=== PATIENT | female | born 1960 | race Two or more races ===

== ENCOUNTER → 2017-07-12 | Outpatient (CLI) | payer OTHER | END | disposition home or self-care (01) | LOC: LAB 09:38 | PROVIDERS: ATTEND Family Medicine | DX: Z12.12 Encounter for screening for malignant neoplasm of rectum (principal) | CPT/HCPCS: 82270 ==

== ENCOUNTER → 2017-08-31 | Outpatient (CLI) | payer OTHER ==
[~2017-08-31] MED LIST: ASPI81TA27 PO; ATOR20TA50 PO; BENA10TA9 PO; METF-370 PO; TRAM50TA2 PO
[2017-08-31 07:32] LABS: Basophils # (auto) 0.1 uL; Eosinophils # (auto) 0.1 uL; Eosinophils % (auto) 1.1 % (0.0-7.0); Mean Corpuscular Volume 93.3 fL (80.0-100.0); Neutrophils # (auto) 6.4 uL; Nucleated Red Blood Cells % 0.1 %
[2017-08-31 07:34] LABS: Hematocrit 47.5 % (36.0-46.0); Hemoglobin 15.7 g/dL (12.2-16.2); Lymphocytes % (auto) 21.8 % (10.0-50.0); Mean Corpuscular Hemoglobin 30.9 pg (28.0-32.0); Mean Corpuscular Hgb Conc. 33.1 g/dL (32.0-36.0); Monocytes # (auto) 0.8 uL; Neutrophils % (auto) 68.1 % (37.0-80.0); Platelet Count (auto) 485 10^3/uL (140-450); Red Blood Cells 5.09 10^6/uL (4.0-5.20); Red Cell Distribution Width 14.3 % (11.8-14.3); White Blood Cell 9.4 10^3/uL (4.4-10.8)
[2017-08-31 08:03] LABS: Albumin 3.9 g/dL (3.4-5.0); BUN/Creatinine Ratio 20.6; Bilirubin, Total 0.5 mg/dL (0.2-1.0); Calcium 9.2 mg/dL (8.5-10.1); Potassium 3.9 mmol/L (3.5-5.1); Total Protein 8.7 g/dL (6.4-8.2)
[2017-09-01 15:59] LABS: Urine Bacteria FEW /hpf (None Seen); Urine Blood TRACE /uL (Negative); Urine Specific Gravity 1.015 (1.001-1.035); Urine WBC 88 /hpf (0 - 5); Urine WBC Clumps PRESENT /hpf (None Seen)
== END | disposition home or self-care (01) ==
LOC: LAB 06:58
PROVIDERS: ATTEND Family Medicine
DX: I10 Essential (primary) hypertension (principal); E11.9 Type 2 diabetes mellitus without complications; E66.01 Morbid (severe) obesity due to excess calories; E78.5 Hyperlipidemia, unspecified; E55.9 Vitamin D deficiency, unspecified
CPT/HCPCS: 36415; 80053; 80061; 81001; 82306; 82607; 83036; 84443; 85025

== ENCOUNTER 2017-09-04 03:03 | Emergency (ER) | payer OTHER ==
[~2017-09-04] VITALS: Ht 167.6 cm; Wt 113.4 kg
[2017-09-04 03:43] VITALS: BP 132/77
[2017-09-04] MEDS ORDERED: KETOROLAC TROMETH 60MG/2ML VIAL IM ONE (04:00)
[2017-09-04] MEDS ORDERED: CYCLOBENZAPRINE HCL 10 MG TAB PO ONE (04:00)
[2017-12-04] MEDS ORDERED: TRAM50TA2 PO (11:46)
[2017-12-04] MEDS ORDERED: BENA10TA9 PO (11:46)
[2017-12-04] MEDS ORDERED: METF-370 PO (11:46)
[2017-12-04] MEDS ORDERED: ATOR20TA50 PO (11:46)
[2017-12-04] MEDS ORDERED: ASPI81TA27 PO (11:46)
== END 2017-09-04 04:37 | disposition home or self-care (01) ==
LOC: ER 03:04
DX: R10.84 Generalized abdominal pain (principal); L90.5 Scar conditions and fibrosis of skin
CPT/HCPCS: 96372; 99283; J1885

== ENCOUNTER 2017-09-22 08:22 | Emergency (ER) | payer OTHER ==
[~2017-09-22] VITALS: Ht 167.6 cm; Wt 108.9 kg
[2017-09-22 08:45] VITALS: BP 183/80
[2017-12-04] MEDS ORDERED: TRAM50TA2 PO (11:46)
[2017-12-04] MEDS ORDERED: ASPI81TA27 PO (11:46)
[2017-12-04] MEDS ORDERED: METF-370 PO (11:46)
[2017-12-04] MEDS ORDERED: ATOR20TA50 PO (11:46)
[2017-12-04] MEDS ORDERED: BENA10TA9 PO (11:46)
== END 2017-09-22 09:16 | disposition home or self-care (01) ==
LOC: ER 08:22
DX: R10.12 Left upper quadrant pain (principal); G89.29 Other chronic pain; L90.5 Scar conditions and fibrosis of skin
CPT/HCPCS: 93005

== ENCOUNTER 2017-10-16 08:19 | Emergency (ER) | payer OTHER ==
[~2017-10-16] VITALS: Ht 165.1 cm; Wt 108.9 kg
[2017-10-16 09:53] LABS: Urine Bacteria FEW /hpf (None Seen); Urine Blood Negative /uL (Negative); Urine WBC 24 /hpf (0 - 5)
[2017-10-16 11:00] VITALS: BP 148/80
[2017-12-04] MEDS ORDERED: ATOR20TA50 PO (11:46)
[2017-12-04] MEDS ORDERED: BENA10TA9 PO (11:46)
[2017-12-04] MEDS ORDERED: ASPI81TA27 PO (11:46)
[2017-12-04] MEDS ORDERED: TRAM50TA2 PO (11:46)
[2017-12-04] MEDS ORDERED: METF-370 PO (11:46)
== END 2017-10-16 12:43 | disposition home or self-care (01) ==
LOC: ER 08:19
DX: N39.0 Urinary tract infection, site not specified (principal); I10 Essential (primary) hypertension; E11.9 Type 2 diabetes mellitus without complications; R53.1 Weakness
CPT/HCPCS: 81001; 81025

== ENCOUNTER 2017-10-17 08:02 | Emergency (ER) | payer OTHER, MEDICAID ==
[~2017-10-17] VITALS: Ht 165.1 cm; Wt 108.9 kg
[2017-10-17 09:05] LABS: Basophils # (auto) 0.1 uL; Basophils % (auto) 1.4 % (0.0-2.0); Eosinophils # (auto) 0.1 uL; Eosinophils % (auto) 0.6 % (0.0-7.0); Hematocrit 45.8 % (36.0-46.0); Hemoglobin 15.1 g/dL (12.2-16.2); Lymphocytes # (auto) 2.3 uL; Lymphocytes % (auto) 23.4 % (10.0-50.0); Mean Corpuscular Hemoglobin 30.3 pg (28.0-32.0); Mean Corpuscular Hgb Conc. 32.9 g/dL (32.0-36.0); Monocytes # (auto) 0.7 uL; Monocytes % (auto) 7.2 % (0.0-12.0); Neutrophils # (auto) 6.8 uL; Neutrophils % (auto) 67.4 % (37.0-80.0); Nucleated Red Blood Cells % 0.1 %; Platelet Count (auto) 444 10^3/uL (140-450); Red Blood Cells 4.98 10^6/uL (4.0-5.20); Red Cell Distribution Width 14.5 % (11.8-14.3)
[2017-10-17 09:33] LABS: Albumin 3.8 g/dL (3.4-5.0); BUN/Creatinine Ratio 22.1; Bilirubin, Total 0.3 mg/dL (0.2-1.0); Calcium 9.3 mg/dL (8.5-10.1); Potassium 4.6 mmol/L (3.5-5.1); Total Protein 8.6 g/dL (6.4-8.2)
[2017-10-17 10:25] VITALS: BP 150/72
[2017-12-04] MEDS ORDERED: TRAM50TA2 PO (11:46)
[2017-12-04] MEDS ORDERED: ATOR20TA50 PO (11:46)
[2017-12-04] MEDS ORDERED: ASPI81TA27 PO (11:46)
[2017-12-04] MEDS ORDERED: BENA10TA9 PO (11:46)
[2017-12-04] MEDS ORDERED: METF-370 PO (11:46)
== END 2017-10-17 10:37 | disposition home or self-care (01) ==
LOC: ER 08:02
DX: R10.13 Epigastric pain (principal); E11.9 Type 2 diabetes mellitus without complications; I10 Essential (primary) hypertension
CPT/HCPCS: 36415; 80053; 82150; 83690; 85025

== ENCOUNTER → 2018-09-28 | Outpatient (CLI) | payer OTHER, MEDICAID ==
[2018-09-28 08:10] LABS: Basophils # (auto) 0.1 uL; Eosinophils # (auto) 0.1 uL; Eosinophils % (auto) 1.1 % (0.0-7.0); Hematocrit 45.4 % (36.0-46.0); Hemoglobin 15.2 g/dL (12.2-16.2); Lymphocytes # (auto) 1.9 uL; Mean Corpuscular Hemoglobin 30.5 pg (28.0-32.0); Mean Corpuscular Hgb Conc. 33.6 g/dL (32.0-36.0); Monocytes # (auto) 0.6 uL; Monocytes % (auto) 7.7 % (0.0-12.0); Neutrophils # (auto) 5.5 uL; Neutrophils % (auto) 67.2 % (37.0-80.0); Nucleated Red Blood Cells % 0.1 %; Platelet Count (auto) 379 10^3/uL (140-450); Red Blood Cells 4.99 10^6/uL (4.0-5.20); Red Cell Distribution Width 14.1 % (11.8-14.3); White Blood Cell 8.1 10^3/uL (4.4-10.8)
[2018-09-28 08:17] LABS: Urine Bacteria FEW /hpf (None Seen); Urine Blood Negative /uL (Negative); Urine Specific Gravity 1.026 (1.001-1.035); Urine WBC 6 /hpf (0 - 5)
[2018-09-28 08:31] LABS: Potassium 3.9 mmol/L (3.5-5.1)
[2018-09-28 08:39] LABS: Albumin 3.6 g/dL (3.4-5.0); BUN/Creatinine Ratio 21.3; Bilirubin, Total 0.3 mg/dL (0.2-1.0); Calcium 9.2 mg/dL (8.5-10.1); Total Protein 7.9 g/dL (6.4-8.2)
== END | disposition home or self-care (01) ==
LOC: LAB 07:33
PROVIDERS: ATTEND Family Medicine
DX: E55.9 Vitamin D deficiency, unspecified (principal); I10 Essential (primary) hypertension; E78.5 Hyperlipidemia, unspecified; E11.9 Type 2 diabetes mellitus without complications; R94.6 Abnormal results of thyroid function studies
CPT/HCPCS: 36415; 80053; 80061; 81001; 82043; 82306; 82607; 83036; 84443; 85025

== ENCOUNTER → 2018-10-26 | Outpatient (CLI) | payer OTHER, MEDICAID | END | disposition home or self-care (01) | LOC: LAB 09:23 | PROVIDERS: ATTEND Family Medicine | DX: E78.5 Hyperlipidemia, unspecified (principal); E55.9 Vitamin D deficiency, unspecified; I10 Essential (primary) hypertension; R94.6 Abnormal results of thyroid function studies; E11.9 Type 2 diabetes mellitus without complications | CPT/HCPCS: 82270 ==

== ENCOUNTER → 2019-05-30 | Outpatient (CLI) | payer OTHER, MEDICAID ==
[~2019-05-30] MED LIST changes: +ASPI-404 PO; -ASPI81TA27 PO
[2019-05-30 08:41] LABS: Urine Blood Negative /uL (Negative); Urine Specific Gravity 1.019 (1.001-1.035)
[2019-05-30 09:11] LABS: Albumin 3.7 g/dL (3.4-5.0); Calcium 9.3 mg/dL (8.5-10.1); Potassium 4.5 mmol/L (3.5-5.1)
[2019-05-30 09:15] LABS: Bilirubin, Total 0.4 mg/dL (0.2-1.0); Total Protein 8.2 g/dL (6.4-8.2)
[2019-05-30 09:19] LABS: Micro Albumin 7.76 mg/L (0-30.0)
== END | disposition home or self-care (01) ==
LOC: LAB 07:39
PROVIDERS: ATTEND Family Medicine
DX: E11.9 Type 2 diabetes mellitus without complications (principal); E78.5 Hyperlipidemia, unspecified; I10 Essential (primary) hypertension; R94.6 Abnormal results of thyroid function studies
CPT/HCPCS: 36415; 80053; 81003; 82043; 83036; 84443

== ENCOUNTER → 2020-07-10 | Outpatient (CLI) | payer OTHER, MEDICAID ==
[~2020-07-10] MED LIST changes: -ASPI-404 PO; +ASPI-543 PO
[2020-07-10 08:31] LABS: Basophils # (auto) 0.1 10 ^3/uL (0-0.2); Eosinophils # (auto) 0.1 10 ^3/uL (0-0.8); Eosinophils % (auto) 1.3 % (0.0-7.0); Lymphocytes # (auto) 1.7 10 ^3/uL (0.4-5.4); Monocytes # (auto) 0.7 10 ^3/uL (0-1.3); Red Cell Distribution Width 14.5 % (11.8-14.3)
[2020-07-10 08:35] LABS: Basophils % (auto) 1.3 % (0.0-2.0); Hematocrit 46.7 % (36.0-46.0); Hemoglobin 15.6 g/dL (12.2-16.2); Lymphocytes % (auto) 20.1 % (10.0-50.0); Mean Corpuscular Hemoglobin 30.2 pg (28.0-32.0); Mean Corpuscular Hgb Conc. 33.5 g/dL (32.0-36.0); Mean Corpuscular Volume 90.1 fL (80.0-100.0); Monocytes % (auto) 8.3 % (0.0-12.0); Platelet Count (auto) 453 10^3/uL (140-450); Red Blood Cells 5.18 10^6/uL (4.0-5.20); White Blood Cell 8.7 10^3/uL (4.4-10.8)
[2020-07-10 08:37] LABS: Urine Bacteria MOD /hpf (None Seen); Urine Blood Negative /uL (Negative); Urine Mucus FEW (None Seen); Urine Specific Gravity 1.021 (1.001-1.035); Urine WBC 14 /hpf (0 - 5)
[2020-07-10 09:49] LABS: Albumin 3.9 g/dL (3.4-5.0)
[2020-07-10 09:55] LABS: BUN/Creatinine Ratio 20.3; Bilirubin, Total 0.4 mg/dL (0.2-1.0); Total Protein 8.5 g/dL (6.4-8.2)
== END | disposition home or self-care (01) ==
LOC: LAB 08:02
PROVIDERS: ATTEND Family Medicine
DX: E11.9 Type 2 diabetes mellitus without complications (principal); I10 Essential (primary) hypertension; E78.5 Hyperlipidemia, unspecified; E66.01 Morbid (severe) obesity due to excess calories; R78.89 Finding of other specified substances, not normally found in blood
CPT/HCPCS: 36415; 80053; 80061; 81001; 82306; 82607; 83036; 84443; 85025

== ENCOUNTER 2020-08-11 10:11 | Emergency (ER) | payer OTHER, MEDICAID ==
[~2020-08-11] VITALS: Ht 167.6 cm; Wt 108.9 kg
[2020-08-11] MEDS ORDERED: MORPHINE SULFATE 4 MG/ML SYR/VIAL IV ONE (10:30)
[2020-08-11] MEDS ORDERED: ONDANSETRON HCL 4 MG/2 ML VIAL IV ONE (10:30)
[2020-08-11 11:36] LABS: Basophils # (auto) 0.1 10 ^3/uL (0-0.2); Eosinophils # (auto) 0.1 10 ^3/uL (0-0.8)
[2020-08-11 11:38] LABS: Basophils % (auto) 0.9 % (0.0-2.0); Hematocrit 47.2 % (36.0-46.0); Hemoglobin 15.6 g/dL (12.2-16.2); Lymphocytes # (auto) 1.7 10 ^3/uL (0.4-5.4); Lymphocytes % (auto) 15.3 % (10.0-50.0); Mean Corpuscular Hgb Conc. 33.1 g/dL (32.0-36.0); Mean Corpuscular Volume 90.6 fL (80.0-100.0); Monocytes # (auto) 0.9 10 ^3/uL (0-1.3); Monocytes % (auto) 7.9 % (0.0-12.0); Neutrophils # (auto) 8.4 10 ^3/uL (1.6-8.6); Neutrophils % (auto) 74.9 % (37.0-80.0); Nucleated Red Blood Cells % 0.1 %; Platelet Count (auto) 505 10^3/uL (140-450); Red Blood Cells 5.21 10^6/uL (4.0-5.20); Red Cell Distribution Width 14.3 % (11.8-14.3); White Blood Cell 11.2 10^3/uL (4.4-10.8)
[2020-08-11 11:51] LABS: Calcium 9.5 mg/dL (8.5-10.1); Chloride 104 mmol/L (98-107); Potassium 3.7 mmol/L (3.5-5.1); Sodium 138 mmol/L (136-145)
[2020-08-11 12:01] LABS: Alanine Aminotransferase 19 U/L (13-56); Albumin 3.9 g/dL (3.4-5.0); Alkaline Phosphatase 84 U/L (45-117); Anion Gap 9 (5-15); Aspartate Aminotransferase 14 U/L (15-37); BUN/Creatinine Ratio 20.8; Bilirubin, Total 0.3 mg/dL (0.2-1.0); Blood Urea Nitrogen 16 mg/dL (7-18); Carbon Dioxide 25 mmol/L (21-32); GFR African American 99 mL/min; GFR Non-African American 82 mL/min; Glucose 140 mg/dL (74-106); Total Protein 8.8 g/dL (6.4-8.2)
[2020-08-11] MEDS ORDERED: HYDROcodone-ACET 10/325MG TAB PO ONE (15:15)
[2020-08-11] MEDS ORDERED: ONDANSETRON ODT 4 MG TAB PO ONE (15:15)
[2020-08-11 15:45] VITALS: BP 139/84
== END 2020-08-11 15:46 | disposition home or self-care (01) ==
LOC: ER 10:11
DX: K80.80 Other cholelithiasis without obstruction (principal)
CPT/HCPCS: 36415; 71045; 76705; 78226; 80053; 84484; 85025; 99285; A9537; Q0162; J2405

== ENCOUNTER 2021-06-22 08:47 | Emergency (ER) | payer MEDICAID, MEDICARE, OTHER ==
[~2021-06-22] VITALS: Ht 167.6 cm; Wt 104.3 kg
[~2021-06-22 08:47] MED LIST changes: +BENA10TA15 PO; -BENA10TA9 PO
[2021-06-22 08:49] VITALS: BP 160/88
[2021-06-22 09:24] LABS: Urine Bacteria FEW /hpf (None Seen); Urine Blood Negative /uL (Negative); Urine Specific Gravity 1.019 (1.001-1.035); Urine WBC 42 /hpf (0 - 5)
[2021-06-22 10:40] LABS: Basophils # (auto) 0.1 10 ^3/uL (0-0.2); Monocytes # (auto) 0.9 10 ^3/uL (0-1.3)
[2021-06-22 10:44] LABS: Eosinophils # (auto) 0.1 10 ^3/uL (0-0.8); Eosinophils % (auto) 0.5 % (0.0-7.0); Hematocrit 42.9 % (36.0-46.0); Hemoglobin 14.6 g/dL (12.2-16.2); Lymphocytes # (auto) 1.6 10 ^3/uL (0.4-5.4); Lymphocytes % (auto) 15.9 % (10.0-50.0); Mean Corpuscular Hemoglobin 30.7 pg (28.0-32.0); Mean Corpuscular Volume 90.1 fL (80.0-100.0); Monocytes % (auto) 9.1 % (0.0-12.0); Neutrophils # (auto) 7.6 10 ^3/uL (1.6-8.6); Neutrophils % (auto) 73.5 % (37.0-80.0); Nucleated Red Blood Cells % 0.1 %; Red Blood Cells 4.76 10^6/uL (4.0-5.20); White Blood Cell 10.4 10^3/uL (4.4-10.8)
[2021-06-22 10:57] LABS: Albumin 3.6 g/dL (3.4-5.0); Calcium 9.6 mg/dL (8.5-10.1)
[2021-06-22 11:00] LABS: BUN/Creatinine Ratio 15.6; Bilirubin, Total 0.3 mg/dL (0.2-1.0); Total Protein 8.2 g/dL (6.4-8.2)
== END 2021-06-22 13:38 | disposition home or self-care (01) ==
LOC: ER 08:47
DX: N39.0 Urinary tract infection, site not specified (principal); E11.9 Type 2 diabetes mellitus without complications; I10 Essential (primary) hypertension; Z88.8 Allergy status to other drugs, medicaments and biological substances
CPT/HCPCS: 36415; 80053; 81001; 83690; 85025

== ENCOUNTER → 2021-08-05 | Day surgery (SDC) | payer OTHER, MEDICAID ==
[2021-08-02 11:26] LABS: Basophils # (auto) 0.1 10 ^3/uL (0-0.2); Eosinophils # (auto) 0.1 10 ^3/uL (0-0.8); Eosinophils % (auto) 0.9 % (0.0-7.0); Monocytes # (auto) 0.8 10 ^3/uL (0-1.3)
[2021-08-02 11:29] LABS: Basophils % (auto) 1.1 % (0.0-2.0); Hemoglobin 14.7 g/dL (12.2-16.2); Lymphocytes % (auto) 19.6 % (10.0-50.0); Mean Corpuscular Hgb Conc. 33.4 g/dL (32.0-36.0); Mean Corpuscular Volume 89.8 fL (80.0-100.0); Monocytes % (auto) 8.2 % (0.0-12.0); Neutrophils % (auto) 70.2 % (37.0-80.0); Red Cell Distribution Width 14.1 % (11.8-14.3)
[2021-08-02 12:01] LABS: Albumin 3.7 g/dL (3.4-5.0); Calcium 9.3 mg/dL (8.5-10.1); Potassium 4.1 mmol/L (3.5-5.1)
[2021-08-02 12:05] LABS: BUN/Creatinine Ratio 22.5; Bilirubin, Total 0.4 mg/dL (0.2-1.0); Total Protein 7.7 g/dL (6.4-8.2)
[~2021-08-05] VITALS: Ht 167.6 cm; Wt 103.0 kg
[~2021-08-05] MED LIST changes: +CYAN1TAB14 PO; +LIDOCAINE VISCOUS 2% 15ML UD ONE; +PANT40T PO; +SUCR1SUS5 PO; -TRAM50TA2 PO; +diphenhdrAMINE HCL 50 MG/1 ML VL ONE
[2021-08-05] MEDS: fentaNYL CITRATE 100 MCG/2 ML VL ONE ×2 (09:56→09:59)
[2021-08-05] MEDS: MIDAZOLAM HCL 5 MG/ML-1ML VIAL ONE ×2 (09:56→09:59)
[2021-08-05 10:45] VITALS: BP 126/57
== END | disposition home or self-care (01) ==
LOC: GI 08:15
PROVIDERS: ATTEND Internal Medicine Gastroenterology
DX: R10.13 Epigastric pain (principal); K29.70 Gastritis, unspecified, without bleeding; I10 Essential (primary) hypertension; E11.9 Type 2 diabetes mellitus without complications; E78.5 Hyperlipidemia, unspecified; F41.9 Anxiety disorder, unspecified; F17.200 Nicotine dependence, unspecified, uncomplicated; Z79.84 Long term (current) use of oral hypoglycemic drugs; Z86.2 Personal history of diseases of the blood and blood-forming organs and certain disorders involving the immune mechanism; Z20.822 Contact with and (suspected) exposure to COVID-19; Z98.890 Other specified postprocedural states; Z79.899 Other long term (current) drug therapy
CPT/HCPCS: 36415; 43239; 80053; 82962; 85025; 88305; 88342; J1200; J2250; J3010; J7030; U0003; 99152

== ENCOUNTER → 2022-01-25 | Outpatient (CLI) | payer OTHER, MEDICARE ==
[~2022-01-25] MED LIST changes: -LIDOCAINE VISCOUS 2% 15ML UD ONE; -diphenhdrAMINE HCL 50 MG/1 ML VL ONE
== END | disposition home or self-care (01) ==
LOC: LAB 09:54
PROVIDERS: ATTEND Family Medicine
DX: Z12.11 Encounter for screening for malignant neoplasm of colon (principal)
CPT/HCPCS: 82270

== ENCOUNTER → 2022-07-20 | Outpatient (CLI) | payer OTHER, MEDICARE | END | disposition home or self-care (01) | LOC: XYW 08:20 | PROVIDERS: ATTEND Internal Medicine Gastroenterology | DX: K83.8 Other specified diseases of biliary tract (principal) | CPT/HCPCS: 78226; A9537 ==

== ENCOUNTER 2022-08-01 10:14 | Emergency (ER) | payer MEDICARE, OTHER ==
[~2022-08-01] VITALS: Ht 167.6 cm; Wt 96.5 kg
[2022-08-01 10:29] VITALS: BP 138/72
[2022-08-01 10:56] LABS: Basophils # (auto) 0.1 10 ^3/uL (0-0.2); Basophils % (auto) 0.6 % (0.0-2.0); Eosinophils # (auto) 0 10 ^3/uL (0-0.8); Hematocrit 44.7 % (36.0-46.0); Lymphocytes # (auto) 1.4 10 ^3/uL (0.4-5.4); Lymphocytes % (auto) 7.9 % (10.0-50.0); Mean Corpuscular Hemoglobin 29.6 pg (28.0-32.0); Mean Corpuscular Hgb Conc. 33.5 g/dL (32.0-36.0); Mean Corpuscular Volume 88.5 fL (80.0-100.0); Monocytes # (auto) 1.7 10 ^3/uL (0-1.3); Neutrophils # (auto) 14.2 10 ^3/uL (1.6-8.6); Neutrophils % (auto) 81.5 % (37.0-80.0); Red Blood Cells 5.05 10^6/uL (4.0-5.20); Red Cell Distribution Width 14.6 % (11.8-14.3); White Blood Cell 17.4 10^3/uL (4.4-10.8)
[2022-08-01 11:12] LABS: Potassium 3.8 mmol/L (3.5-5.1)
[2022-08-01 11:14] LABS: BUN/Creatinine Ratio 17.2; Calcium 9.9 mg/dL (8.5-10.1)
[2022-08-01] MEDS ORDERED: cefTRIAXone 1GM/50ML D5W 50 ML IV ONE ×2 (11:15→13:45)
[2022-08-01] MEDS ORDERED: SODIUM CHLORIDE 0.9% 1,000 ML IV ONE (11:15)
[2022-08-01 11:17] LABS: Bilirubin, Total 0.6 mg/dL (0.2-1.0); Total Protein 8.3 g/dL (6.4-8.2)
[2022-08-01 11:53] LABS: INR 1.1 (0.9-1.15); Partial Thromboplastin Time 32.2 sec (24.6-33.4)
[2022-08-01] MEDS ORDERED: metroNIDAZOLE 500MG/100ML 100 ML IV ONE (13:45)
== END 2022-08-01 14:51 | disposition left against medical advice (07) ==
LOC: ER 10:14
DX: K81.0 Acute cholecystitis (principal); E11.65 Type 2 diabetes mellitus with hyperglycemia; I10 Essential (primary) hypertension; Z90.49 Acquired absence of other specified parts of digestive tract; Z88.8 Allergy status to other drugs, medicaments and biological substances
CPT/HCPCS: 36415; 71045; 76705; 80053; 83605; 83690; 84484; 85025; 85610; 85730; 87040; 93005; 99285; J0696

== ENCOUNTER → 2023-01-31 | Outpatient (CLI) | payer OTHER, MEDICAID ==
[~2023-01-31] MED LIST changes: +BENA-19 PO; -BENA10TA15 PO
== END | disposition home or self-care (01) ==
LOC: LAB 07:47
PROVIDERS: ATTEND Student in an Organized Health Care Education/Training Program
DX: Z12.11 Encounter for screening for malignant neoplasm of colon (principal)
CPT/HCPCS: 82274

== ENCOUNTER → 2023-01-31 | Outpatient (CLI) | payer OTHER, MEDICAID ==
[2023-01-31 07:26] LABS: Basophils # (auto) 0.1 10 ^3/uL (0-0.2); Basophils % (auto) 0.8 % (0.0-2.0); Eosinophils # (auto) 0.1 10 ^3/uL (0-0.8); Eosinophils % (auto) 1.2 % (0.0-7.0); Hemoglobin 14.1 g/dL (12.2-16.2); Lymphocytes # (auto) 1.6 10 ^3/uL (0.4-5.4); Lymphocytes % (auto) 17.5 % (10.0-50.0); Mean Corpuscular Hemoglobin 27.1 pg (28.0-32.0); Mean Corpuscular Hgb Conc. 32.7 g/dL (32.0-36.0); Mean Corpuscular Volume 82.7 fL (80.0-100.0); Monocytes # (auto) 0.9 10 ^3/uL (0-1.3); Monocytes % (auto) 9.1 % (0.0-12.0); Neutrophils # (auto) 6.7 10 ^3/uL (1.6-8.6); Neutrophils % (auto) 71.4 % (37.0-80.0); Nucleated Red Blood Cells % 0.1 %; Red Blood Cells 5.19 10^6/uL (4.0-5.20); Red Cell Distribution Width 18.3 % (11.8-14.3); White Blood Cell 9.4 10^3/uL (4.4-10.8)
[2023-01-31 08:51] LABS: Potassium 4.4 mmol/L (3.5-5.1)
[2023-01-31 09:01] LABS: Micro Albumin 9.5 mg/L (0-30.0)
[2023-01-31 09:12] LABS: Albumin 3.6 g/dL (3.4-5.0); BUN/Creatinine Ratio 20.3 (10.0-20.0); Bilirubin, Total 0.4 mg/dL (0.2-1.0); Calcium 9.3 mg/dL (8.5-10.1); Total Protein 8.3 g/dL (6.4-8.2)
== END | disposition home or self-care (01) ==
LOC: LAB 06:54
PROVIDERS: ATTEND Student in an Organized Health Care Education/Training Program
DX: E11.9 Type 2 diabetes mellitus without complications (principal); I10 Essential (primary) hypertension; E66.1 Drug-induced obesity
CPT/HCPCS: 36415; 80053; 80061; 82043; 82570; 83036; 85025

== ENCOUNTER 2023-08-23 12:30 | Inpatient (IN) | payer OTHER, MEDICAID ==
[~2023-08-23] VITALS: Ht 162.6 cm; Wt 100.0 kg
[2023-08-23 13:32] LABS: Basophils # (auto) 0.1 10 ^3/uL (0-0.2); Basophils % (auto) 0.7 % (0.0-2.0); Eosinophils # (auto) 0.1 10 ^3/uL (0-0.8); Eosinophils % (auto) 0.7 % (0.0-7.0); Hemoglobin 12.9 g/dL (12.2-16.2); Lymphocytes # (auto) 1.5 10 ^3/uL (0.4-5.4); Mean Corpuscular Hemoglobin 28.2 pg (28.0-32.0); Mean Corpuscular Hgb Conc. 32.2 g/dL (32.0-36.0); Mean Corpuscular Volume 87.6 fL (80.0-100.0); Monocytes % (auto) 9.9 % (0.0-12.0); Neutrophils # (auto) 7.9 10 ^3/uL (1.6-8.6); Neutrophils % (auto) 74.7 % (37.0-80.0); Red Blood Cells 4.57 10^6/uL (4.0-5.20); Red Cell Distribution Width 14.8 % (11.8-14.3); White Blood Cell 10.5 10^3/uL (4.4-10.8)
[2023-08-23 13:56] LABS: Alanine Aminotransferase 17 U/L (7-40); Albumin 4.4 g/dL (3.2-4.8); Alkaline Phosphatase 85 U/L (46-116); Anion Gap 8 (5-15); Aspartate Aminotransferase 16 U/L (13-40); BUN/Creatinine Ratio 17.7 (10.0-20.0); Blood Urea Nitrogen 14 mg/dL (9-23); Calcium 9.5 mg/dL (8.7-10.4); Carbon Dioxide 27 mmol/L (20-30); Chloride 103 mmol/L (98-107); Glucose 167 mg/dL (74-106); Potassium 4.3 mmol/L (3.5-5.1); Sodium 138 mmol/L (136-145)
[2023-08-23 13:57] LABS: Bilirubin, Total 0.5 mg/dL (0.2-1.0); Total Protein 7.4 g/dL (5.7-8.2)
[2023-08-23 20:10] LABS: COVID19 ANTIGEN SOFIA FIA NEGATIVE (NEGATIVE)
[2023-08-23 20:41] LABS: Urine Bacteria FEW /hpf (None Seen); Urine Blood Negative /uL (Negative); Urine Clarity HAZY (Clear); Urine Color Colorless (Yellow); Urine Protein, UAD Negative (Negative); Urine WBC 26 /hpf (0 - 5); Urine pH 6.5 (5.0-8.0)
[2023-08-23] MEDS ORDERED: NITROFURANTOIN 100 mg CAP PO ONE (21:00)
[2023-08-23] MEDS ORDERED: FUROSEMIDE 40 MG/4 ML VIAL IV ONE (21:00)
[2023-08-23 21:38] VITALS: PULSE 85; RESP 20; O2SAT 97
[2023-08-23] MEDS ORDERED: ONDANSETRON HCL 4 MG/2 ML VIAL IV PRN (21:45)
[2023-08-23] MEDS ORDERED: ACETAMINOPHEN 325 MG TAB PO PRN (21:45)
[2023-08-23] MEDS ORDERED: NITROGLYCERIN 0.4 MG SL TAB SL PRN (21:45)
[2023-08-23] MEDS ORDERED: DEXTROSE (50%) 50ML SYRG IV PRN (21:45)
[2023-08-23] MEDS ORDERED: MORPHINE SULFATE INJ 2 MG/ml SYRG IV PRN (21:45)
[2023-08-23] MEDS ORDERED: ATORVASTATIN 20 MG TAB PO SCH (22:00)
[2023-08-23] MEDS: ACCU-CHEK COMFORT CURVE STRIP VI SCH (22:00)
[2023-08-23] MEDS: cefTRIAXone 1GM/50ML D5W 50 ML IV SCH (22:27)
[2023-08-23] MEDS: InsuLIN REG 1unit/0.01ml Soln (100units/ml) SC SCH (22:30)
[2023-08-24 06:12] LABS: Basophils # (auto) 0.1 10 ^3/uL (0-0.2); Basophils % (auto) 0.9 % (0.0-2.0); Eosinophils # (auto) 0 10 ^3/uL (0-0.8); Eosinophils % (auto) 0.4 % (0.0-7.0); Hematocrit 42.2 % (36.0-46.0); Hemoglobin 13.9 g/dL (12.2-16.2); Lymphocytes # (auto) 1.3 10 ^3/uL (0.4-5.4); Lymphocytes % (auto) 14.2 % (10.0-50.0); Mean Corpuscular Hemoglobin 28.3 pg (28.0-32.0); Mean Corpuscular Hgb Conc. 32.9 g/dL (32.0-36.0); Mean Corpuscular Volume 86.2 fL (80.0-100.0); Monocytes # (auto) 0.9 10 ^3/uL (0-1.3); Monocytes % (auto) 9.9 % (0.0-12.0); Neutrophils % (auto) 74.6 % (37.0-80.0); Red Blood Cells 4.89 10^6/uL (4.0-5.20); Red Cell Distribution Width 14.6 % (11.8-14.3); White Blood Cell 9.4 10^3/uL (4.4-10.8)
[2023-08-24 06:45] LABS: Alanine Aminotransferase 14 U/L (7-40); Albumin 4.8 g/dL (3.2-4.8); Alkaline Phosphatase 88 U/L (46-116); Anion Gap 9 (5-15); Aspartate Aminotransferase 15 U/L (13-40); BUN/Creatinine Ratio 14.9 (10.0-20.0); Blood Urea Nitrogen 11 mg/dL (9-23); Calcium 9.7 mg/dL (8.7-10.4); Carbon Dioxide 29 mmol/L (20-30); Chloride 100 mmol/L (98-107); Glucose 148 mg/dL (74-106); Potassium 3.4 mmol/L (3.5-5.1); Sodium 138 mmol/L (136-145)
[2023-08-24 06:46] LABS: Bilirubin, Total 0.6 mg/dL (0.2-1.0); Total Protein 8.5 g/dL (5.7-8.2)
[2023-08-24] MEDS ORDERED: POTASSIUM EFFERVESENT TAB 25 MEQ PO ONE (07:30)
[2023-08-24] MEDS: ACCU-CHEK COMFORT CURVE STRIP VI SCH ×4 (07:53→21:36)
[2023-08-24] MEDS: InsuLIN REG 1unit/0.01ml Soln (100units/ml) SC SCH ×4 (07:56→21:42)
[2023-08-24 08:08] VITALS: PULSE 73; RESP 16; O2SAT 94
[2023-08-24] MEDS ORDERED: FUROSEMIDE 40 MG/4 ML VIAL IV ONE (09:15)
[2023-08-24] MEDS ORDERED: FUROSEMIDE 40 MG TAB PO SCH (10:00)
[2023-08-24] MEDS ORDERED: BENAZEPRIL HCL 10 MG TAB PO SCH (10:00)
[2023-08-24] MEDS ORDERED: hydrALAZINE HCL 20 MG/ML VL IV PRN (11:15)
[2023-08-24 11:27] LABS: Amphetamine Screen, Urine Neg (NEGATIVE); Barbiturate Scree,Urine Neg (NEGATIVE); Benzodiazephine Screen, Urine Neg (NEGATIVE); Cannabinoid Screen, Urine Pos (NEGATIVE); Cocaine Screen, Urine Neg (NEGATIVE); Opiate Scree,Urine Neg (NEGATIVE); Phencyclidine Screen, Urine Neg (NEGATIVE)
[2023-08-24] MEDS ORDERED: ERGOCALCIFEROL 50,000 UNIT(1.25MG) CAP PO SCH (11:45)
[2023-08-24 12:20] LABS: INR 1.18 (0.9-1.15); Prothrombin Time 12.3 sec (9.3-11.8)
[2023-08-24] MEDS: cefTRIAXone 1GM/50ML D5W 50 ML IV SCH (12:26)
[2023-08-24] MEDS: ASPirin 81 mg TAB PO SCH (12:41)
[2023-08-24] MEDS: LOSARTAN POTASSIUM 25 MG TAB PO SCH (12:41)
[2023-08-24 13:00] VITALS: RESP 16; O2SAT 94
[2023-08-24] MEDS ORDERED: GABA-1250 PO (15:30)
[2023-08-24 16:13] VITALS: BP 139/62; PULSE 86; RESP 16; TEMP 97.4; O2SAT 86
[2023-08-24 16:59] VITALS: BP 139/62; PULSE 86; RESP 16; TEMP 97.4; O2SAT 94
[2023-08-24] MEDS: FUROSEMIDE 20 MG/2 ML VIAL IV SCH (17:05)
[2023-08-24 20:00] VITALS: PULSE 78
[2023-08-24 22:00] VITALS: BP 98/38; PULSE 78; RESP 18; TEMP 97.8; O2SAT 99
[2023-08-24] MEDS ORDERED: ATORVASTATIN 20 MG TAB PO SCH (22:00)
[2023-08-25 05:00] VITALS: BP 114/57; PULSE 77; RESP 18; TEMP 97.5; O2SAT 97
[2023-08-25 05:07] LABS: Basophils # (auto) 0.1 10 ^3/uL (0-0.2); Basophils % (auto) 1.2 % (0.0-2.0); Eosinophils # (auto) 0.1 10 ^3/uL (0-0.8); Eosinophils % (auto) 1.3 % (0.0-7.0); Hematocrit 42.6 % (36.0-46.0); Hemoglobin 14.1 g/dL (12.2-16.2); Lymphocytes # (auto) 1.5 10 ^3/uL (0.4-5.4); Lymphocytes % (auto) 18.9 % (10.0-50.0); Mean Corpuscular Hemoglobin 28.5 pg (28.0-32.0); Mean Corpuscular Hgb Conc. 33.2 g/dL (32.0-36.0); Mean Corpuscular Volume 85.9 fL (80.0-100.0); Monocytes # (auto) 1.1 10 ^3/uL (0-1.3); Monocytes % (auto) 13.3 % (0.0-12.0); Neutrophils # (auto) 5.2 10 ^3/uL (1.6-8.6); Neutrophils % (auto) 65.3 % (37.0-80.0); Red Blood Cells 4.96 10^6/uL (4.0-5.20); Red Cell Distribution Width 14.8 % (11.8-14.3)
[2023-08-25 05:29] LABS: Alanine Aminotransferase 14 U/L (7-40); Albumin 4.4 g/dL (3.2-4.8); Alkaline Phosphatase 80 U/L (46-116); Anion Gap 6 (5-15); Aspartate Aminotransferase 16 U/L (13-40); BUN/Creatinine Ratio 17.2 (10.0-20.0); Bilirubin, Total 0.7 mg/dL (0.2-1.0); Blood Urea Nitrogen 16 mg/dL (9-23); Calcium 9.7 mg/dL (8.7-10.4); Carbon Dioxide 32 mmol/L (20-30); Chloride 101 mmol/L (98-107); Glucose 148 mg/dL (74-106); Potassium 4.1 mmol/L (3.5-5.1); Sodium 139 mmol/L (136-145); Total Protein 7.7 g/dL (5.7-8.2)
[2023-08-25] MEDS: FUROSEMIDE 20 MG/2 ML VIAL IV SCH (06:35)
[2023-08-25] MEDS: ACCU-CHEK COMFORT CURVE STRIP VI SCH (06:35)
[2023-08-25] MEDS: InsuLIN REG 1unit/0.01ml Soln (100units/ml) SC SCH (06:36)
[2023-08-25 07:30] VITALS: PULSE 80
[2023-08-25] MEDS ORDERED: LOS25T PO (07:50)
[2023-08-25] MEDS ORDERED: ATOR20TA50 PO (07:50)
[2023-08-25] MEDS ORDERED: ASPI-325 PO (07:50)
[2023-08-25] MEDS ORDERED: METF-372 PO (07:50)
[2023-08-25] MEDS ORDERED: CAR3125T OR (07:50)
[2023-08-25] MEDS ORDERED: POTA-180 PO (07:50)
[2023-08-25] MEDS ORDERED: FURO1TAB33 GT (07:50)
[2023-08-25] MEDS ORDERED: ERGO1CAP23 PO (07:50)
[2023-08-25] MEDS ORDERED: CEPH500T PO (07:55)
[2023-08-25 08:30] VITALS: BP 112/63; PULSE 87; RESP 17; TEMP 98.1; O2SAT 100
[2023-08-25] MEDS: cefTRIAXone 1GM/50ML D5W 50 ML IV SCH (09:00)
[2023-08-25] MEDS ORDERED: ENOXAPARIN SOD 40 MG/0.4 ML SYRINGE SC SCH (10:00)
[2023-08-25] MEDS: ASPirin 81 mg TAB PO SCH (10:00)
[2023-08-25] MEDS: LOSARTAN POTASSIUM 25 MG TAB PO SCH (10:00)
[2023-08-25 10:16] VITALS: BP 114/57; TEMP 36.7
[2023-08-26 00:06] LABS: Free Thyroxine Index 3.6 (1.2-4.9); Thyroxine (T4) 11.6 ug/dL (4.5-12.0)
== END 2023-08-25 11:00 | disposition home or self-care (01) | DRG 291 ==
LOC: ER 12:30 → TELE 21:44 → TELE-EAST 08-24 15:48
PROVIDERS: ADMIT Internal Medicine; ATTEND Internal Medicine
DX: I11.0 Hypertensive heart disease with heart failure (principal); I50.41 Acute combined systolic (congestive) and diastolic (congestive) heart failure; N39.0 Urinary tract infection, site not specified; I16.0 Hypertensive urgency; R16.0 Hepatomegaly, not elsewhere classified; E11.42 Type 2 diabetes mellitus with diabetic polyneuropathy; E66.01 Morbid (severe) obesity due to excess calories; E78.5 Hyperlipidemia, unspecified; E87.6 Hypokalemia; K21.9 Gastro-esophageal reflux disease without esophagitis; Z20.822 Contact with and (suspected) exposure to COVID-19; F12.90 Cannabis use, unspecified, uncomplicated; R09.89 Other specified symptoms and signs involving the circulatory and respiratory systems; E55.9 Vitamin D deficiency, unspecified; I87.8 Other specified disorders of veins; N28.9 Disorder of kidney and ureter, unspecified; K42.9 Umbilical hernia without obstruction or gangrene; Z68.37 Body mass index [BMI] 37.0-37.9, adult
CPT/HCPCS: 36415; 71045; 71046; 74176; 80053; 80061; 80307; 81001; 82306; 82607; 82962; 83036; 83735; 83880; 84443; 84484; 85025; 85610; 87086; 87426; 93005; 93306; 93886; 93970; G0378; J1815

== ENCOUNTER → 2023-09-26 | Outpatient (CLI) | payer OTHER, MEDICAID ==
[~2023-09-26] MED LIST changes: +ASPI-325 PO; -ASPI-543 PO; +CAR3125T OR; +CEPH500T PO; -CYAN1TAB14 PO; +ERGO1CAP23 PO; +FURO1TAB33 GT; +GABA-1250 PO; +LOS25T PO; -METF-370 PO; +METF-372 PO; +POTA-180 PO
[2023-09-26 07:53] LABS: Basophils # (auto) 0.1 10 ^3/uL (0-0.2); Basophils % (auto) 1.1 % (0.0-2.0); Eosinophils # (auto) 0.1 10 ^3/uL (0-0.8); Eosinophils % (auto) 0.9 % (0.0-7.0); Hematocrit 43.4 % (36.0-46.0); Hemoglobin 14.1 g/dL (12.2-16.2); Lymphocytes # (auto) 1.8 10 ^3/uL (0.4-5.4); Lymphocytes % (auto) 18.4 % (10.0-50.0); Mean Corpuscular Hemoglobin 28.2 pg (28.0-32.0); Mean Corpuscular Hgb Conc. 32.4 g/dL (32.0-36.0); Monocytes # (auto) 0.9 10 ^3/uL (0-1.3); Monocytes % (auto) 9.4 % (0.0-12.0); Neutrophils # (auto) 6.7 10 ^3/uL (1.6-8.6); Neutrophils % (auto) 70.2 % (37.0-80.0); Red Blood Cells 4.98 10^6/uL (4.0-5.20); Red Cell Distribution Width 16.3 % (11.8-14.3); White Blood Cell 9.6 10^3/uL (4.4-10.8)
[2023-09-26 08:17] LABS: Chloride 105 mmol/L (98-107); Potassium 4.7 mmol/L (3.5-5.1); Sodium 143 mmol/L (136-145)
[2023-09-26 08:18] LABS: Anion Gap 7 (5-15); Calcium 9.8 mg/dL (8.5-10.1); Carbon Dioxide 31 mmol/L (20-30)
[2023-09-26 08:23] LABS: BUN/Creatinine Ratio 18.4 (10.0-20.0); Blood Urea Nitrogen 14 mg/dL (9-23); Glucose 135 mg/dL (74-106); Triglycerides 123 mg/dL (< 150)
[2023-09-26 08:24] LABS: LDL Cholesterol 64 mg/dL (< 100)
[2023-09-26 08:25] LABS: Cholesterol 128 mg/dL (< 200); HDL Cholesterol 43 mg/dL (40-59)
== END | disposition home or self-care (01) ==
LOC: LAB 07:29
PROVIDERS: ATTEND Student in an Organized Health Care Education/Training Program
DX: I50.32 Chronic diastolic (congestive) heart failure (principal); E78.5 Hyperlipidemia, unspecified; E11.42 Type 2 diabetes mellitus with diabetic polyneuropathy; E66.01 Morbid (severe) obesity due to excess calories; F33.9 Major depressive disorder, recurrent, unspecified
CPT/HCPCS: 36415; 80048; 80061; 83036; 85025

== ENCOUNTER → 2023-10-09 | Outpatient (CLI) | payer OTHER ==
[~2023-10-09] VITALS: Ht 167.6 cm; Wt 98.9 kg
[~2023-10-09] MED LIST changes: +ADENOSINE 83 MG in GIVE UN-DILUTED 0 ML IV ONE; +ADENOSINE 90 MG/30 ML INJ IV ONE
== END | disposition home or self-care (01) ==
LOC: Rad HDHVI 09:02
PROVIDERS: ATTEND Internal Medicine Cardiovascular Disease
DX: I11.0 Hypertensive heart disease with heart failure (principal); I50.9 Heart failure, unspecified; R07.9 Chest pain, unspecified; R06.02 Shortness of breath; E78.5 Hyperlipidemia, unspecified
CPT/HCPCS: 78452; 93005; 96374; 96375; A9500; J0153

== ENCOUNTER → 2024-03-05 | Outpatient (CLI) | payer OTHER, MEDICAID ==
[~2024-03-05] MED LIST changes: -ADENOSINE 83 MG in GIVE UN-DILUTED 0 ML IV ONE; -ADENOSINE 90 MG/30 ML INJ IV ONE; -BENA-19 PO; +BENA10TA90 PO; -CAR3125T OR; +CARV-214 OR
== END | disposition home or self-care (01) ==
LOC: LAB 16:11
PROVIDERS: ATTEND Student in an Organized Health Care Education/Training Program
DX: R30.0 Dysuria (principal)
CPT/HCPCS: 87086

== ENCOUNTER → 2024-05-16 | Outpatient (CLI) | payer OTHER, MEDICAID | END | disposition home or self-care (01) | LOC: LAB 08:31 | PROVIDERS: ATTEND Student in an Organized Health Care Education/Training Program | DX: Z12.11 Encounter for screening for malignant neoplasm of colon (principal) | CPT/HCPCS: 82274 ==

== ENCOUNTER → 2024-07-11 | Outpatient (CLI) | payer OTHER, MEDICAID ==
[2024-07-11 09:16] LABS: Anion Gap 10 (5-15); Carbon Dioxide 31 mmol/L (20-31); Chloride 99 mmol/L (98-107); Sodium 140 mmol/L (136-145)
[2024-07-11 09:21] LABS: Glucose 114 mg/dL (74-106)
[2024-07-11 09:22] LABS: BUN/Creatinine Ratio 24.4 (10.0-20.0); Blood Urea Nitrogen 19 mg/dL (9-23)
[2024-07-11 10:14] LABS: Creatinine, Urine 86.77 mg/dL (30.0-125.0)
== END | disposition home or self-care (01) ==
LOC: LAB 07:51
PROVIDERS: ATTEND Nurse Practitioner
DX: E11.9 Type 2 diabetes mellitus without complications (principal)
CPT/HCPCS: 36415; 80048; 82043; 82570; 83036

== ENCOUNTER 2024-07-21 16:38 | Inpatient (IN) | payer OTHER, MEDICAID ==
[~2024-07-21] VITALS: Ht 167.6 cm; Wt 104.7 kg
--- NOTE | 2024-07-21 16:59 | ECG ---
[facility] [place] Test Date: 2024-07-21 Test Time: 16:58:05 Pat Name: CATHERINE OSMAN Department: ER Room: [facility]1T Gender: F Strap Buckler: JOSE : 1960 Requested By: STEFANI HEWITT Order Number: [id number] Reading MD: Robert Alejandro Measurements Intervals [place] Rate: 80 P: 40 AK: 151 QRS: 129 QRSD: 89 T: 1 QT: 413 QTc: 477 Interpretive Statements Sinus rhythm Lateral infarct, age indeterminate Probable anteroseptal infarct, old Electronically Signed On 07-23-2024 8:25:49 PST by Robert Alejandro Please click the below link to view image of tracing.
[2024-07-21] MEDS: NITROGLYCERIN 2% OINT 1GM PKG TD ONE (17:00)
[2024-07-21 17:24] LABS: Basophils # (auto) 0.1 10 ^3/uL (0-0.2); Basophils % (auto) 1.2 % (0.0-2.0); Eosinophils # (auto) 0.1 10 ^3/uL (0-0.8); Eosinophils % (auto) 1.1 % (0.0-7.0); Hematocrit 38.3 % (36.0-46.0); Hemoglobin 12.6 g/dL (12.2-16.2); Lymphocytes # (auto) 1.7 10 ^3/uL (0.4-5.4); Lymphocytes % (auto) 16.6 % (10.0-50.0); Mean Corpuscular Hemoglobin 29.5 pg (28.0-32.0); Mean Corpuscular Volume 89.4 fL (80.0-100.0); Neutrophils # (auto) 7.2 10 ^3/uL (1.6-8.6); Neutrophils % (auto) 71.1 % (37.0-80.0); Platelet Count (auto) 389 10^3/uL (140-450); Red Blood Cells 4.28 10^6/uL (4.0-5.20); Red Cell Distribution Width 14.9 % (11.8-14.3); White Blood Cell 10.1 10^3/uL (4.4-10.8)
--- NOTE | 2024-07-21 17:32 | DVH ---
CHEST RADIOGRAPH Indication: sob Technique: Single frontal view of the chest was obtained COMPARISON: XY CHEST PORTABLE on DOS: 08/25/23, CXRP on DOS: 08/01/22, CHEST PORTABLE on DOS: 08/01/22, CHEST PORTABLE on DOS: 08/11/20 FINDINGS: Lines and Tubes: None Lungs: Clear Pleura: No effusion. No pneumothorax. Cardiomediastinal contours: Unremarkable Bones: Unremarkable IMPRESSION: 1. No acute disease.
[2024-07-21 17:33] LABS: Chloride 103 mmol/L (98-107); Potassium 3.7 mmol/L (3.5-5.1); Sodium 142 mmol/L (136-145)
[2024-07-21 17:34] LABS: Anion Gap 9 (5-15); Calcium 10.1 mg/dL (8.7-10.4); Carbon Dioxide 30 mmol/L (20-31)
[2024-07-21 17:39] LABS: BUN/Creatinine Ratio 30.9 (10.0-20.0); Blood Urea Nitrogen 25 mg/dL (9-23); Glucose 187 mg/dL (74-106)
--- NOTE | 2024-07-21 17:39 | DVH ---
Left lower extremity venous duplex Clinical History: LLE edema Comparison: US BILAT LOWER DVT on DOS: 08/24/23 Technique: Duplex Doppler evaluation of the deep venous system of the left lower extremity from the common femor al vein to the popliteal vein including color Doppler and spectral/pulsed waveform analysis was perfo rmed. Findings: The common femoral vein demonstrates appropriate compressibility and waveform variability. There is compressibility/patency of the great saphenous vein at the proximal thigh. The femoral vein demonstrates appropriate compressibility and waveform variability. The deep femoral vein demonstrates appropriate compressibility and waveform variability. The popliteal vein demonstrates appropriate compressibility and waveform variability. There is normal compressibility at the tibioperoneal trunk. Impression: 1. No left femoropopliteal venous thrombosis.
[2024-07-21] MEDS: FUROSEMIDE 40 MG/4 ML VIAL IV ONE ×2 (17:41→22:25)
--- NOTE | 2024-07-21 17:48 | ED.PDOC ---
SOB-HPI HPI Comments 83-year-old female with a history of CHF brought in by self complaining of shortness of breath and dyspnea on exertion that she noticed when she woke up this morning. Patient also notes pressure-like pulsation on the right side of her neck, as well as worsening lower extremity edema, left greater than right. She denies any chest pain, fever or cough. She states she has been compliant with her Lasix 20 mg daily. Chief Complaint: Shortness of Breath Time Seen by MD: 16:42 Primary Care Provider: ? Mode of Arrival: Ambulatory Past Medical History PAST MEDICAL HISTORY: CHF, DM, Gallstones, High Lipids, HTN Past Medical History (Other): Lower extremity neuropathy, Surgical History (Other): Right knee surgery due to trauma SLIP LASTER History: No Pertinent SLIP LASTER History Family History Family History: Reviewed,noncontributory to illness Social History Smoker: Non-Smoker Alcohol: Denies ETOH Use Drugs: Denies Drug Use Lives In: Home All Other Systems: Reviewed and Negative (Comprehensive systems review obtained and negative except for what is stated in the HPI.) Physical Exam General Appearance: No Apparent Distress, Obese HEENT: Other (Pupils symmetric, no facial asymmetry, moist mucous membranes) Neck: Full Range of Motion, Supple, Other (Positive JVD, right jugular venous pulsations) Respiratory: Chest Non-Tender, Decreased Breath Sounds, No Respiratory Distress Cardiovascular: JVD, Regular Rate/Rhythm Breast Exam: Deferred Gastrointestinal: Non Tender Genitalia: Deferred Pelvic: Deferred Rectal: Deferred Extremities: Leg edema, Normal range of motion, Pedal edema, Swelling, Tender, Other (Left greater than right lower extremity pitting edema) Neurologic: Alert, No Motor Deficits, Normal Affect, Normal Mood, No Sensory Deficits Cerebellar Function: NOT DONE Reflexes: NOT DONE Skin: Dry, Warm, Other (Mild left lower extremity erythema) Lymphatic: NOT DONE EKG EKG : Comments Sinus rhythm, rate 80, normal WA and QRS intervals, QTC prolonged at 477, normal axis, old lateral infarct, possible old anteroseptal infarct, nonspecific T change Was a procedure done? Was a procedure done?: No Differential Dx Differential Diagnosis: Asthma, CHF, COPD, Hypertension, Myocardial infarction, Panic Attack, Pneumonia, Pulmonary Embolism, URI, Other (DVT, among others) X-Ray, Labs, Meds, VS Vital Signs Date Time Temp Pulse Resp B/P (MAP) Pulse Ox O2 Delivery O2 Flow Rate FiO2 07/21/24 17:41 129/58 07/21/24 17:32 97.0 80 15 129/58 (81) 96 97.0 07/21/24 17:00 129/58 07/21/24 16:58 80 07/21/24 16:40 97.7 81 18 140/74 (96) 99 Lab Test 07/21/24 18:36 07/21/24 18:14 07/21/24 16:56 07/21/24 16:51 Range/Units Urine Color Colorless Yellow Urine Clarity Clear Clear Urine pH 6.5 5.0-9.0 Urine Specific [place] 1.008 1.001-1.035 Urine Protein Negative Negative Urine Ketones Negative Negative Urine Blood Negative Negative /uL Urine Nitrite Negative Negative Urine Bilirubin Negative Negative Urine Urobilinogen Normal Negative mg/dL Urine Leukocyte Esterase 1+ Negative /uL Urine RBC 1 0 - 4 /hpf Urine WBC 4 0 - 5 /hpf Urine Squamous Epithelial Cells Few <5 /hpf Urine Bacteria None seen None Seen /hpf Urine Glucose Normal Normal mg/dL Phosphorus Level 3.7 2.4-5.1 mg/dL Magnesium Level 2.1 1.6-2.6 mg/dL Troponin I High Sensitivity 6 6 </=34 ng/L White Blood Count 10.1 4.4-10.8 10^3/uL Red Blood Count 4.28 4.0-5.20 10^6/uL Hemoglobin 12.6 12.2-16.2 g/dL Hematocrit 38.3 36.0-46.0 % Mean Corpuscular Volume 89.4 80.0-100.0 fL Mean Corpuscular Hemoglobin 29.5 28.0-32.0 pg Mean Corpuscular Hemoglobin Concent 33.0 32.0-36.0 g/dL Red Cell Distribution Width 14.9 H 11.8-14.3 % Platelet Count 389 140-450 10^3/uL Mean Platelet Volume 8.1 6.9-10.8 fL Neutrophils (%) (Auto) 71.1 37.0-80.0 % Lymphocytes (%) (Auto) 16.6 10.0-50.0 % Monocytes (%) (Auto) 10.0 0.0-12.0 % Eosinophils (%) (Auto) 1.1 0.0-7.0 % Basophils (%) (Auto) 1.2 0.0-2.0 % Neutrophils # (Auto) 7.2 1.6-8.6 10 ^3/uL Lymphocytes # (Auto) 1.7 0.4-5.4 10 ^3/uL Monocytes # (Auto) 1.0 0-1.3 10 ^3/uL Eosinophils # (Auto) 0.1 0-0.8 10 ^3/uL Basophils # (Auto) 0.1 0-0.2 10 ^3/uL Nucleated Red Blood Cells 0.0 % Sodium Level 142 136-145 mmol/L Potassium Level 3.7 3.5-5.1 mmol/L Chloride Level 103 98-107 mmol/L Carbon Dioxide Level 30 20-31 mmol/L Anion Gap 9 5-15 Blood Urea Nitrogen 25 H 9-23 mg/dL Creatinine 0.81 0.550-1.02 mg/dL Glomerular Filtration Rate Calc 82 >90 mL/min BUN/Creatinine Ratio 30.9 H 10.0-20.0 Serum Glucose 187 H 74-106 mg/dL Calcium Level 10.1 8.7-10.4 mg/dL B-Type Natriuretic Peptide 392.32 0-100 pg/mL POC Glucose 170 H 70-106 mg/dl Current Medications Medications (Trade) Dose Ordered Sig/Jamie Route Start Time Stop Time Status Last Admin Furosemide (Lasix Injection) 40 mg ONCE ONCE IV 07/21/24 17:00 07/21/24 17:01 DC 07/21/24 17:41 PROCEDURE(s): CXRP - CHEST PORTABLE REASON: sob ORDER NUMBER(s): [id number], ACCESSION NUMBER(s): [id number] CHEST RADIOGRAPH Indication: sob Technique: Single frontal view of the chest was obtained COMPARISON: XY CHEST PORTABLE on DOS: 08/25/23, CXRP on DOS: 08/01/22, CHEST PORTABLE on DOS: 08/01/22, CHEST PORTABLE on DOS: 08/11/20 FINDINGS: Lines and Tubes: None Lungs: Clear Pleura: No effusion. No pneumothorax. Cardiomediastinal contours: Unremarkable Bones: Unremarkable IMPRESSION: 1. No acute disease. EDURE(s): LLDVT - LT Lower DVT REASON: LLE edema ORDER NUMBER(s): [id number], ACCESSION NUMBER(s): [id number] Left lower extremity venous duplex Clinical History: LLE edema Comparison: US BILAT LOWER DVT on DOS: 08/24/23 Technique: Duplex Doppler evaluation of the deep venous system of the left lower extremity from the common femoral vein to the popliteal vein including color Doppler and spectral/pulsed waveform analysis was performed. Findings: The common femoral vein demonstrates appropriate compressibility and waveform variability. There is compressibility/patency of the great saphenous vein at the proximal thigh. The femoral vein demonstrates appropriate compressibility and waveform variability. The deep femoral vein demonstrates appropriate compressibility and waveform variability. The popliteal vein demonstrates appropriate compressibility and waveform variability. There is normal compressibility at the tibioperoneal trunk. Impression: 1. No left femoropopliteal venous thrombosis. X-Ray, Labs, Meds, VS Comment 63-year-old female with a history of CHF, hypertension, dyslipidemia, type 2 diabetes and neuropathy complaining of shortness a breath, increased lower extremity swelling, and pulsatile pressure in her neck Vitals unremarkable Exam remarkable for right greater than left neck pulsatile JVD, decreased breath sounds at bilateral bases, 3+ pitting edema bilateral lower extremities, left slightly greater than right Rhythm strip independently interpreted by me: Normal sinus rhythm, rate 80, no ectopy. EKG sinus rhythm, nonspecific changes Chest x-ray no acute disease Left lower extremity Doppler ultrasound negative for DVT CBC unremarkable Basic metabolic panel remarkable for BUN 25, glucose 187 BNP 392.32 Troponin negative Patient treated with the following in the ED: Lasix 40 mg IV, Nitro-Bid 1/2 inch applied to chest wall On re-evaluation, patient's blood pressure has improved, vitals were stable, she was not short of breath at rest. Plan is to admit the patient for diuresis and Cardiology evaluation Time of 1ST Reevaluation: 18:03 Reevaluation 1ST: Improved Patient Education/Counseling: Diagnosis, Treatment Family Education/Counseling: No Family Present Departure 1 Departure Time of Disposition: 17:47 Impression: Primary Impression: Acute exacerbation of chronic heart failure Disposition: ADMITTED INPATIENT Admit to: [facility] Condition: Guarded Critical Care Note Critical Care Time?: Yes (35 min-critical care time only) Critical care comment: Critical care time including multiple bedside re-evaluations, review of lab and imaging studies, and discussion of the case with the admitting provider. Patient is high risk for hemodynamic and/or respiratory decompensation. Stability Stability form required: No Heart Score Heart Score: Heart Score Response (Comments) Value History Slightly Suspicious 0 EKG Repolarization Disturb 1 Age 45-64 1 Risk Factors >3 or Hx ASHD 2 Troponin Normal limit 0 Total 4 STEFANI VALDEZ MD Jul 21, 2024 17:48
[2024-07-21 18:37] LABS: Urine Bacteria None Seen /hpf (None Seen)
[2024-07-21 19:04] LABS: Urine Blood Negative /uL (Negative); Urine Clarity Clear (Clear); Urine Color Colorless (Yellow); Urine Protein, UAD Negative (Negative); Urine Specific Gravity 1.008 (1.001-1.035); Urine Urobilinogen Normal (Negative); Urine WBC 4 /hpf (0 - 5); Urine pH 6.5 (5.0-9.0)
[2024-07-21] MEDS ORDERED: ACETAMINOPHEN 325 MG TAB PO PRN (20:45)
[2024-07-21] MEDS ORDERED: DOCUSATE SOD 100 MG CAP PO PRN (20:45)
[2024-07-21] MEDS ORDERED: ONDANSETRON HCL 4 MG/2 ML VIAL IV PRN (20:45)
[2024-07-21] MEDS ORDERED: MORPHINE SULFATE INJ 2 MG/ml SYRG IV PRN ×2 (20:45)
[2024-07-21] MEDS ORDERED: NITROGLYCERIN 0.4 MG SL TAB SL PRN ×2 (20:45→21:30)
--- NOTE | 2024-07-21 21:27 | DVHHPRES ---
History of Present Illness Resident Creating Document: KUSH LOPEZ RESIDENT History of Present Illness 63 years old female with past medical history of congestive heart failure, hypertension, diabetes mellitus type 2, hyperlipidemia, status post cholecystectomy, gastritis, lower extremity neuropathy came with a complaint of shortness of breaths and bilateral leg swelling for last 4 days. Patient reported when she woke up early in the morning she felt short of breath, shortness of breath increased with exertion, relieved with rest. Patient also reported bilateral leg swelling for last 4 days. Patient also reported that she noticed some pulsation of the vessels on the right upper neck. On further dis cussion patient also reported having elevated blood pressure in the morning 154/91. Patient denied any chest pain, palpitation, fever, dysuria, constipation or diarrhea, acute joint redness, dysarthria or change in vision. Initial lab workup revealed blood sugar level 1-2 7, BNP 392.32, urinalysis revealed leukocyte esterase 1+, RBC 1+, WBC 4 +, no bacteria. EKG [id number] in 1, aVL, V1, V2, troponin I negative. Chest-X-ray no acute cardiopulmonary disease, venous Doppler negative for DVT Home medication include metformin 1000 mg b.i.d., losartan 25 mg q.d., carvedilol 3.125 mg b.i.d., Lasix 20 mg q.d., atorvastatin 20 mg q.d., baby aspirin 81 mg q.d. Past Medical History congestive heart failure, hypertension, diabetes mellitus type 2, hyperlipidemia, status post cholecystectomy, gastritis, lower extremity neuropathy Past Surgical History Cholecystectomy, left knee surgery due to trauma Family History Dad had hypertension, mom diabetes mellitus Past Social History Lives home alone, nonsmoker, nonalcoholic, denies using any drugs Review of Systems Review of Systems Allergy- nitrofurantoin Patient was seen today at the bedside. Patient reports leg swelling Cardiovascular- deny acute chest pain, cough or palpitation Respiratory- denies cough , wheezing Gastrointestinal- denies any rectal bleeding, nausea or vomiting Musculoskeletal-denies acute joint swelling or tenderness or redness Neurological- denies acute dysarthria, dysphagia, change in vision Psychiatry- denies depression or SI or HI Skin- denies acute rash or purpura Allergies: Coded Allergies: Nitrofurantoin (Verified Allergy, Unknown, 12/04/17) Medications Current Medications Medications Dose Ordered Sig/Jamie Route Start Time Stop Time Status Last Admin Dose Admin Sodium Chloride 10 ml Q8HR IV 07/21/24 22:00 Ondansetron HCl 4 mg Q4HP PRN IV 07/21/24 20:45 Docusate Sodium 100 mg BIDPRN PRN PO 07/21/24 20:45 Acetaminophen 650 mg Q6HP PRN PO 07/21/24 20:45 Morphine Sulfate 2 mg Q4HPRN PRN IV 07/21/24 20:45 Nitroglycerin 0.4 mg Q5MINP PRN SL 07/21/24 20:45 Morphine Sulfate 2 mg Q30M PRN IV 07/21/24 20:45 Exam Vital Signs Vital Signs Date Time Temp Pulse Resp B/P (MAP) Pulse Ox O2 Delivery O2 Flow Rate FiO2 07/21/24 17:41 129/58 07/21/24 17:32 97.0 80 15 96 97.0 Exam General examination- awake, alert, oriented, conversant HEENT- [place]ERLA, no acute nasal discharge Cardiovascular- jugular venous distention, S1-S2 audible, rate and rhythm regular, murmur+ Respiratory- bilateral lung crackles+ Gastrointestinal-nontender, bowel sound+. Nondistended Musculoskeletal-no acute joint swelling or tenderness or redness# Lower extremity- bilateral leg swelling++ Neurological- cranial nerves intact, no acute dysarthria or dysphagia Psychiatry- denies depression or SI or HI Skin- bilateral leg swelling++ Labs/Xrays Labs Test 07/21/24 18:36 07/21/24 18:14 07/21/24 16:56 07/21/24 16:51 Range/Units Urine Color Colorless Yellow Urine Clarity Clear Clear Urine pH 6.5 5.0-9.0 Urine Specific [place] 1.008 1.001-1.035 Urine Protein Negative Negative Urine Ketones Negative Negative Urine Blood Negative Negative /uL Urine Nitrite Negative Negative Urine Bilirubin Negative Negative Urine Urobilinogen Normal Negative mg/dL Urine Leukocyte Esterase 1+ Negative /uL Urine RBC 1 0 - 4 /hpf Urine WBC 4 0 - 5 /hpf Urine Squamous Epithelial Cells Few <5 /hpf Urine Bacteria None seen None Seen /hpf Urine Glucose Normal Normal mg/dL Troponin I High Sensitivity 6 </=34 ng/L White Blood Count 10.1 4.4-10.8 10^3/uL Red Blood Count 4.28 4.0-5.20 10^6/uL Hemoglobin 12.6 12.2-16.2 g/dL Hematocrit 38.3 36.0-46.0 % Mean Corpuscular Volume 89.4 80.0-100.0 fL Mean Corpuscular Hemoglobin 29.5 28.0-32.0 pg Mean Corpuscular Hemoglobin Concent 33.0 32.0-36.0 g/dL Red Cell Distribution Width 14.9 H 11.8-14.3 % Platelet Count 389 140-450 10^3/uL Mean Platelet Volume 8.1 6.9-10.8 fL Neutrophils (%) (Auto) 71.1 37.0-80.0 % Lymphocytes (%) (Auto) 16.6 10.0-50.0 % Monocytes (%) (Auto) 10.0 0.0-12.0 % Eosinophils (%) (Auto) 1.1 0.0-7.0 % Basophils (%) (Auto) 1.2 0.0-2.0 % Neutrophils # (Auto) 7.2 1.6-8.6 10 ^3/uL Lymphocytes # (Auto) 1.7 0.4-5.4 10 ^3/uL Monocytes # (Auto) 1.0 0-1.3 10 ^3/uL Eosinophils # (Auto) 0.1 0-0.8 10 ^3/uL Basophils # (Auto) 0.1 0-0.2 10 ^3/uL Nucleated Red Blood Cells 0.0 % Sodium Level 142 136-145 mmol/L Potassium Level 3.7 3.5-5.1 mmol/L Chloride Level 103 98-107 mmol/L Carbon Dioxide Level 30 20-31 mmol/L Anion Gap 9 5-15 Blood Urea Nitrogen 25 H 9-23 mg/dL Creatinine 0.81 0.550-1.02 mg/dL Glomerular Filtration Rate Calc 82 >90 mL/min BUN/Creatinine Ratio 30.9 H 10.0-20.0 Serum Glucose 187 H 74-106 mg/dL Calcium Level 10.1 8.7-10.4 mg/dL B-Type Natriuretic Peptide 392.32 0-100 pg/mL POC Glucose 170 H 70-106 mg/dl Assessment/Plan Assessment/Plan #Acute hypoxic respiratory failure likely due to acute on chronic heart failure -patient complained of shortness of breath, bilateral leg swelling -patient was unable to complete a full sentence -BNP 392, -D-dimer 0.43 -lower extremity venous Doppler negative for DVT -hold carvedilol 3.125 mg p.o. b.i.d. -Lasix 20 mg IV b.i.d. -losartan 25 mg p.o. daily -atorvastatin 40 mg q.h.s. -pending echo 2D -continue telemetry -ordered cardiology consult # acute on chronic heart failure --patient complained of shortness of breath, bilateral leg swelling --patient was unable to complete a full sentence -BNP 392, --lower extremity venous Doppler negative for DVT -hold carvedilol 3.125 mg p.o. b.i.d. -Lasix 20 mg IV b.i.d. -losartan 25 mg p.o. daily -atorvastatin 40 mg q.h.s. -pending echo 2D -continue telemetry -ordered cardiology consult #Bilateral leg edema likely due to acute on chronic heart failure --patient complained of shortness of breath, bilateral leg swelling --lower extremity venous Doppler negative for DVT -BNP 392, -D-dimer 0.43 -Lasix 20 mg IV b.i.d. --pending echo 2D # UTI -urinalysis leukocyte esterase 1+, RBC 1, WBC 4 -pending uterine CS -continue ceftriaxone 1 g IV daily # CAD -SHO-X-M-wave in 1, aVL, V1, V2 -continue aspirin 81 mg p.o. q.d. -continue atorvastatin 40 mg q.h.s. -pending echo 2D # hypertension, uncontrolled --continue carvedilol 3.125 mg p.o. b.i.d. -Lasix 20 mg IV b.i.d. -losartan 25 mg p.o. daily -pending echo 2D -continue telemetry -ordered cardiology consult #Diabetes mellitus type 2 -pending HGB A1c -continue insulin sliding scale #Diabetic neuropathy -continue gabapentin 300 mg t.i.d. -monitor blood sugar level, strict control of blood sugar level # hyperlipidemia -continue atorvastatin 20 mg q.h.s. # history of gastritis -continue pantoprazole as prescribed -continue sucralfate as prescribed # obesity, BMI 36.7 -counseled about weight reduction, low-fat diet, physical activity # pending lactic acid reports to rule out end-organ supply demand mismatch Goals of care/advance care planning; FULL CODE; discussed with the patient >15 minutes PUD prophylaxis: Pantoprazole DVT prophylaxis: Lovenox PCP-Dr. Peng Food Preparation Supervisor-Dr. Yost Plan discussed with Dr. Berger, nursing staff, patient Total time spent on patient evaluation, chart review, assessment and plan, discussion discussion >30 minutes Plan discussed with: Patient Plan discussed with: Patient, Other (RN) My Orders Orders - KUSH LOPEZ Procedure Category Date Status Time Admit ADMIT 07/21/24 Transmitted 20:31 Code Status CODE 07/21/24 Transmitted 20:31 Sodium Chloride Lock PHA 07/21/24 In Process (Saline Lock Ns) 22:00 Ondansetron Hcl PHA 07/21/24 In Process (Zofran) 20:45 Docusate Sodium PHA 07/21/24 In Process Capsule (Colace 20:45 Complete Blood Count LAB 07/22/24 Verified 04:00 Comprehensive LAB 07/22/24 Verified Metabolic Panel 04:00 Cardiac DIET 07/22/24 Transmitted Diet-2gna,Lofat,Lochol Breakfast Acetaminophen Tablet PHA 07/21/24 In Process (Tylenol Tablet) 20:45 Morphine Sulfate PHA 07/21/24 In Process Injection 20:45 Nitroglycerin PHA 07/21/24 In Process Sublingual (Ntrostat 20:45 Morphine Sulfate PHA 07/21/24 In Process Injection 20:45 Oxygen By Nasal RT 07/21/24 Transmitted Cannula 20:31 Stat Ekg For Chest TRI 07/21/24 In Process Pain 20:31 Notify Md Of Changes TRI 07/21/24 In Process From Base 20:31 Lead Press Operator For TRI 07/21/24 In Process 24 Hours 20:31 Emergency Dysrhythmia TRI 07/21/24 In Process Protocol 20:31 Rhythm Strips Once TRI 07/21/24 In Process Every Shift 20:31 Date of Service: Jul 21, 2024 Billing Provider: KATHY BERGER MD Common Visit Codes: 87941-KVIWFBB INP/OBS CARE (HIGH) Secondary Visit Codes: 61376-[id number] CARE PLAN 30 MINUTES KUSH LOPEZ Jul 21, 2024 21:27 KATHY BERGER MD Jul 22, 2024 17:51
[2024-07-21] MEDS: CARVEDILOL 3.125 MG TAB PO SCH (22:00)
[2024-07-21] MEDS: SUCRALFATE 1 GM/10 ML ORAL SUSP PO SCH (22:24)
[2024-07-21] MEDS: ERGOCALCIFEROL 50,000 UNIT(1.25MG) CAP PO SCH (22:24)
[2024-07-21] MEDS: GABAPENTIN 300 MG CAP PO SCH (22:24)
[2024-07-21] MEDS: SODIUM CHLOR 0.9% PF (SALINE LOCK) 10ML VIAL/SYR IV SCH (22:25)
[2024-07-21] MEDS ORDERED: DEXTROSE (50%) 50ML SYRG IV PRN (23:15)
[2024-07-21 23:34] LABS: Magnesium 2.1 mg/dL (1.6-2.6)
[2024-07-21 23:35] LABS: Phosphorus 3.7 mg/dL (2.4-5.1)
[2024-07-21] MEDS: ENOXAPARIN SOD 40 MG/0.4 ML SYRINGE SC ONE (23:48)
[2024-07-21] MEDS: PANTOPRAZOLE 40 MG/10 ML VIAL INJ IV ONE (23:48)
[2024-07-21] MEDS: cefTRIAXone 1GM/50ML D5W 50 ML IV ONE (23:49)
[2024-07-22] VITALS (7 sets, daily range): BP systolic 91–105; BP diastolic 51–60; PULSE 63–89; RESP 17–19; TEMP 36.7; O2SAT 92–97
--- NOTE | 2024-07-22 04:11 | DVH ---
Right lower extremity venous duplex Clinical History: SWELLING/SOB LDVT DONE TODAY Comparison: US LT LOWER DVT on DOS: 07/21/24, US BILAT LOWER DVT on DOS: 08/24/23 Technique: Duplex Doppler evaluation of the deep venous system of the right lower extremity from the common femo ral vein to the popliteal vein including color Doppler and spectral/pulsed waveform analysis was perf ormed. Findings: The common femoral vein demonstrates appropriate compressibility and waveform variability. There is compressibility/patency of the great saphenous vein at the proximal thigh. The femoral vein demonstrates appropriate compressibility and waveform variability. The deep femoral vein demonstrates appropriate compressibility and waveform variability. The popliteal vein demonstrates appropriate compressibility and waveform variability. There is normal compressibility at the tibioperoneal trunk. Impression: 1. No right femoropopliteal venous thrombosis.
[2024-07-22] MEDS: FUROSEMIDE 40 MG/4 ML VIAL IV SCH (05:44)
[2024-07-22] MEDS: ACCU-CHEK COMFORT CURVE STRIP VI SCH (05:44)
[2024-07-22] MEDS: InsuLIN REG 1unit/0.01ml Soln (100units/ml) SC SCH (05:46)
[2024-07-22 06:27] LABS: Basophils # (auto) 0.1 10 ^3/uL (0-0.2); Basophils % (auto) 0.9 % (0.0-2.0); Eosinophils # (auto) 0.1 10 ^3/uL (0-0.8); Eosinophils % (auto) 1.3 % (0.0-7.0); Hematocrit 34.9 % (36.0-46.0); Hemoglobin 11.8 g/dL (12.2-16.2); Lymphocytes # (auto) 1.8 10 ^3/uL (0.4-5.4); Lymphocytes % (auto) 17.9 % (10.0-50.0); Mean Corpuscular Hgb Conc. 33.8 g/dL (32.0-36.0); Mean Corpuscular Volume 88.6 fL (80.0-100.0); Monocytes # (auto) 1.2 10 ^3/uL (0-1.3); Monocytes % (auto) 12.6 % (0.0-12.0); Neutrophils # (auto) 6.6 10 ^3/uL (1.6-8.6); Neutrophils % (auto) 67.3 % (37.0-80.0); Platelet Count (auto) 361 10^3/uL (140-450); Red Blood Cells 3.93 10^6/uL (4.0-5.20); Red Cell Distribution Width 14.7 % (11.8-14.3); White Blood Cell 9.8 10^3/uL (4.4-10.8)
[2024-07-22 07:11] LABS: Alanine Aminotransferase 20 U/L (7-40); Alkaline Phosphatase 72 U/L (46-116); Anion Gap 6 (5-15); Aspartate Aminotransferase 14 U/L (13-40); BUN/Creatinine Ratio 24.4 (10.0-20.0); Blood Urea Nitrogen 21 mg/dL (9-23); Calcium 9.7 mg/dL (8.7-10.4); Carbon Dioxide 34 mmol/L (20-31); Chloride 103 mmol/L (98-107); Cholesterol 110 mg/dL (< 200); Glucose 99 mg/dL (74-106); HDL Cholesterol 43 mg/dL (40-59); LDL Cholesterol 47 mg/dL (< 100); Potassium 3.7 mmol/L (3.5-5.1); Sodium 143 mmol/L (136-145); Triglycerides 131 mg/dL (< 150)
[2024-07-22 07:12] LABS: Bilirubin, Total 0.5 mg/dL (0.2-1.0); Total Protein 6.9 g/dL (5.7-8.2)
[2024-07-22] MEDS: ATORVASTATIN 20 MG TAB PO SCH (09:25)
[2024-07-22] MEDS: ASPirin-EC 81 mg tab PO SCH (09:25)
[2024-07-22] MEDS: PANTOPRAZOLE 40 MG/10 ML VIAL INJ IV SCH (09:25)
[2024-07-22] MEDS: cefTRIAXone 1GM/50ML D5W 50 ML IV SCH (09:26)
[2024-07-22] MEDS: ENOXAPARIN SOD 40 MG/0.4 ML SYRINGE SC SCH (09:26)
[2024-07-22] MEDS ORDERED: LOSARTAN POTASSIUM 25 MG TAB PO SCH (10:00)
[2024-07-22] MEDS ORDERED: ATORVASTATIN 20 MG TAB PO SCH (10:00)
[2024-07-22] MEDS ORDERED: FURO1TAB33 PO (12:34)
[2024-07-22] MEDS ORDERED: ERGO1CAP23 PO (12:34)
--- NOTE | 2024-07-22 12:38 | DVHDS2 ---
Discharge Summary Date of Admission Jul 21, 2024 at 20:31 Date of Discharge: Jul 22, 2024 Labs/Diagnostic Data: Laboratory Results Test 07/22/24 11:35 07/22/24 09:14 07/22/24 05:55 07/22/24 00:35 POC Glucose 154 mg/dl (70-106) Lactic Acid Level 1.8 mmol/L (0.4-2.0) White Blood Count 9.8 10^3/uL (4.4-10.8) Red Blood Count 3.93 10^6/uL (4.0-5.20) Hemoglobin 11.8 g/dL (12.2-16.2) Hematocrit 34.9 % (36.0-46.0) Mean Corpuscular Volume 88.6 fL (80.0-100.0) Mean Corpuscular Hemoglobin 30.0 pg (28.0-32.0) Mean Corpuscular Hemoglobin Concent 33.8 g/dL (32.0-36.0) Red Cell Distribution Width 14.7 % (11.8-14.3) Platelet Count 361 10^3/uL (140-450) Mean Platelet Volume 7.8 fL (6.9-10.8) Neutrophils (%) (Auto) 67.3 % (37.0-80.0) Lymphocytes (%) (Auto) 17.9 % (10.0-50.0) Monocytes (%) (Auto) 12.6 % (0.0-12.0) Eosinophils (%) (Auto) 1.3 % (0.0-7.0) Basophils (%) (Auto) 0.9 % (0.0-2.0) Neutrophils # (Auto) 6.6 10 ^3/uL (1.6-8.6) Lymphocytes # (Auto) 1.8 10 ^3/uL (0.4-5.4) Monocytes # (Auto) 1.2 10 ^3/uL (0-1.3) Eosinophils # (Auto) 0.1 10 ^3/uL (0-0.8) Basophils # (Auto) 0.1 10 ^3/uL (0-0.2) Nucleated Red Blood Cells 0.0 % Sodium Level 143 mmol/L (136-145) Potassium Level 3.7 mmol/L (3.5-5.1) Chloride Level 103 mmol/L (98-107) Carbon Dioxide Level 34 mmol/L (20-31) Anion Gap 6 (5-15) Blood Urea Nitrogen 21 mg/dL (9-23) Creatinine 0.86 mg/dL (0.550-1.02) Glomerular Filtration Rate Calc 76 mL/min (>90) BUN/Creatinine Ratio 24.4 (10.0-20.0) Serum Glucose 99 mg/dL (74-106) Calcium Level 9.7 mg/dL (8.7-10.4) Total Bilirubin 0.5 mg/dL (0.2-1.0) Aspartate Amino Transferase (AST) 14 U/L (13-40) Alanine Aminotransferase (ALT) 20 U/L (7-40) Alkaline Phosphatase 72 U/L (46-116) Total Protein 6.9 g/dL (5.7-8.2) Albumin 4.0 g/dL (3.2-4.8) Triglycerides Level 131 mg/dL (< 150) Cholesterol Level 110 mg/dL (< 200) LDL Cholesterol 47 mg/dL (< 100) HDL Cholesterol 43 mg/dL (40-59) D-Dimer, Quantitative 0.43 mg/L FEU (0.0-0.49) Test 07/21/24 18:36 07/21/24 18:14 07/21/24 16:56 Urine Color Colorless (Yellow) Urine Clarity Clear (Clear) Urine pH 6.5 (5.0-9.0) Urine Specific [employer] 1.008 (1.001-1.035) Urine Protein Negative (Negative) Urine Ketones Negative (Negative) Urine Blood Negative /uL (Negative) Urine Nitrite Negative (Negative) Urine Bilirubin Negative (Negative) Urine Urobilinogen Normal mg/dL (Negative) Urine Leukocyte Esterase 1+ /uL (Negative) Urine RBC 1 /hpf (0 - 4) Urine WBC 4 /hpf (0 - 5) Urine Squamous Epithelial Cells Few /hpf (<5) Urine Bacteria None seen /hpf (None Seen) Urine Glucose Normal mg/dL (Normal) Phosphorus Level 3.7 mg/dL (2.4-5.1) Magnesium Level 2.1 mg/dL (1.6-2.6) Troponin I High Sensitivity 6 ng/L (</=34) B-Type Natriuretic Peptide 392.32 pg/mL (0-100) Other Laboratory Tests 07/22/24 05:55 Brief Hx & Hospital Course: 63 years old female with past medical history of congestive heart failure, hypertension, diabetes mellitus type 2, hyperlipidemia, status post cholecystectomy, gastritis, lower extremity neuropathy came with a complaint of shortness of breaths and bilateral leg swelling for last 4 days. Patient was treated with Lasix IV, feeling better. Will discontinue Losartan, increase Lasix to 20mg Po twice a day. Patient advised to monitor BP at home and record readings for PCP office and Dr. Alejandro. Condition at Discharge: Poor Final Diagnosis/Problems List Acute Diastolic CHF Discharge Disposition: Home Discharge Instruct/Medications Diet: Cardiac 2g Na,low cholest Activity: Light activity Follow Up/Referral: Avi Long Medications: see [facility] Discharge Statement: "Patient was advised to return to the ER or call 911 if any headaches, dizziness, shortness of breath, chest pain, abdominal pain, bleeding, fevers, or worsening of medical condition. Patient was counseled about treatment plan, medications, possible side effects, patientverbalized understanding. All questions were answered to the best of my ability. This discharge took greater then 30 minutes in planning, reviewing documentation, counseling the patient, and discussing with other team members." ASSESSMENT ASSESSMENT Assessment Date of Service: Jul 22, 2024 Billing Provider: KATHY PARKER MD Common Visit Codes: 26245-ENQ/OBS DISCH DAY >30min KATHY PAKRER MD Jul 22, 2024 12:37
[2024-07-22] MEDS ORDERED: FURO40TA4 PO (15:22)
[2024-07-22] MEDS ORDERED: FUROSEMIDE 40 MG/4 ML VIAL IV SCH (18:00)
== END 2024-07-22 17:15 | disposition home or self-care (01) | DRG 291 ==
LOC: ER 16:38 → TELE 20:31 → TELE-WESTW 20:33
PROVIDERS: ADMIT Internal Medicine; ATTEND Internal Medicine
DX: I11.0 Hypertensive heart disease with heart failure (principal); I50.33 Acute on chronic diastolic (congestive) heart failure; J96.01 Acute respiratory failure with hypoxia; N39.0 Urinary tract infection, site not specified; I25.10 Atherosclerotic heart disease of native coronary artery without angina pectoris; E78.5 Hyperlipidemia, unspecified; E66.9 Obesity, unspecified; E11.41 Type 2 diabetes mellitus with diabetic mononeuropathy; Z68.36 Body mass index [BMI] 36.0-36.9, adult; Z90.49 Acquired absence of other specified parts of digestive tract; Z82.49 Family history of ischemic heart disease and other diseases of the circulatory system; Z83.3 Family history of diabetes mellitus; Z79.82 Long term (current) use of aspirin; Z79.899 Other long term (current) drug therapy
CPT/HCPCS: 36415; 71045; 80048; 80053; 80061; 81001; 82962; 83605; 83735; 83880; 84100; 84484; 85025; 85379; 87086; 93005; 93306; 93971; 99291; G0378; J1815; J2470

== ENCOUNTER → 2024-08-05 | Outpatient (CLI) | payer OTHER, MEDICAID ==
[~2024-08-05] MED LIST changes: -CEPH500T PO; -FURO1TAB33 GT; +FURO40TA4 PO; -LOS25T PO
[2024-08-05 09:10] LABS: Anion Gap 7 (5-15); Chloride 100 mmol/L (98-107); Potassium 3.9 mmol/L (3.5-5.1); Sodium 139 mmol/L (136-145)
[2024-08-05 09:14] LABS: Calcium 10.6 mg/dL (8.7-10.4); Carbon Dioxide 32 mmol/L (20-31)
[2024-08-05 09:16] LABS: BUN/Creatinine Ratio 24.5 (10.0-20.0)
[2024-08-05 09:22] LABS: Blood Urea Nitrogen 24 mg/dL (9-23); Glucose 172 mg/dL (74-106)
== END | disposition home or self-care (01) ==
LOC: LAB 07:51
PROVIDERS: ATTEND Internal Medicine
DX: I50.32 Chronic diastolic (congestive) heart failure (principal)
CPT/HCPCS: 36415; 80048; 83880

== ENCOUNTER → 2024-09-09 | Outpatient (CLI) | payer OTHER, MEDICAID ==
[2024-09-09 08:59] LABS: Urine Bacteria None Seen /hpf (None Seen)
[2024-09-09 09:27] LABS: Basophils # (auto) 0.1 10 ^3/uL (0-0.2); Eosinophils # (auto) 0.1 10 ^3/uL (0-0.8); Hematocrit 38.3 % (36.0-46.0); Hemoglobin 12.7 g/dL (12.2-16.2); Lymphocytes % (auto) 18.7 % (10.0-50.0); Mean Corpuscular Hemoglobin 29.3 pg (28.0-32.0); Mean Corpuscular Hgb Conc. 33.1 g/dL (32.0-36.0); Mean Corpuscular Volume 88.5 fL (80.0-100.0); Monocytes # (auto) 1.1 10 ^3/uL (0-1.3); Monocytes % (auto) 9.7 % (0.0-12.0); Neutrophils # (auto) 7.5 10 ^3/uL (1.6-8.6); Neutrophils % (auto) 69.6 % (37.0-80.0); Platelet Count (auto) 421 10^3/uL (140-450); Red Blood Cells 4.33 10^6/uL (4.0-5.20); Red Cell Distribution Width 15.6 % (11.8-14.3); White Blood Cell 10.8 10^3/uL (4.4-10.8)
[2024-09-09 10:20] LABS: Alanine Aminotransferase 21 U/L (7-40); Alkaline Phosphatase 76 U/L (46-116); Anion Gap 9 (5-15); Aspartate Aminotransferase 20 U/L (13-40); BUN/Creatinine Ratio 33.3 (10.0-20.0); Calcium 10.3 mg/dL (8.7-10.4); Carbon Dioxide 30 mmol/L (20-31); Chloride 100 mmol/L (98-107); LDL Cholesterol 62 mg/dL (< 100); Potassium 4.5 mmol/L (3.5-5.1); Sodium 139 mmol/L (136-145); Triglycerides 128 mg/dL (< 150)
[2024-09-09 10:21] LABS: Albumin 4.2 g/dL (3.2-4.8); Cholesterol 123 mg/dL (< 200); HDL Cholesterol 46 mg/dL (40-59); Total Protein 7.4 g/dL (5.7-8.2)
[2024-09-09 10:22] LABS: Blood Urea Nitrogen 26 mg/dL (9-23); Glucose 125 mg/dL (74-106)
[2024-09-09 10:27] LABS: Bilirubin, Total 0.3 mg/dL (0.2-1.0)
[2024-09-09 11:15] LABS: Urine Blood Negative /uL (Negative); Urine Clarity Clear (Clear); Urine Color Light-Yellow (Yellow); Urine Protein, UAD Negative (Negative); Urine Specific Gravity 1.022 (1.001-1.035); Urine Squamous Epithelial Cell MOD /hpf (<5); Urine Urobilinogen Normal (Negative); Urine WBC 4 /hpf (0 - 5); Urine pH 6.5 (5.0-9.0)
[2024-09-09 11:21] LABS: Creatinine, Urine 77.08 mg/dL (30.0-125.0)
[2024-09-09 11:27] LABS: Micro Albumin < 3.0 mg/L (<30.0); Microalb/Creat Ratio, Urine < 3.00
== END | disposition home or self-care (01) ==
LOC: LAB 08:40
PROVIDERS: ATTEND Nurse Practitioner
DX: I10 Essential (primary) hypertension (principal); E78.5 Hyperlipidemia, unspecified; E11.9 Type 2 diabetes mellitus without complications
CPT/HCPCS: 36415; 80053; 80061; 81001; 82043; 82570; 83036; 84443; 85025

== ENCOUNTER 2025-01-15 10:31 | Emergency (ER) | payer OTHER, MEDICAID ==
[~2025-01-15] VITALS: Ht 165.1 cm; Wt 91.6 kg
[~2025-01-15 10:31] MED LIST changes: +CEPH250C PO; +FURO1TAB33 PO; -FURO40TA4 PO; +LIDO1PAD55 TOP; +LOS25T PO
[2025-01-15 12:41] LABS: Urine Bacteria None Seen /hpf (None Seen)
[2025-01-15 12:50] LABS: Urine Blood Negative /uL (Negative); Urine Clarity Clear (Clear); Urine Color Yellow (Yellow); Urine Protein, UAD Negative (Negative); Urine Specific Gravity 1.016 (1.001-1.035); Urine Squamous Epithelial Cell FEW /hpf (<5); Urine Urobilinogen Normal (Negative); Urine WBC 1 /HPF (0-5); Urine pH 6.5 (5.0-9.0)
[2025-01-15] MEDS: MORPHINE SULFATE 4 MG/ML SYR/VIAL IM ONE (13:57)
[2025-01-15 14:04] LABS: Basophils # (auto) 0.1 10 ^3/uL (0-0.2); Basophils % (auto) 0.9 % (0.0-2.0); Eosinophils # (auto) 0.1 10 ^3/uL (0-0.8); Eosinophils % (auto) 0.7 % (0.0-7.0); Hematocrit 45.1 % (36.0-46.0); Hemoglobin 15.3 g/dL (12.2-16.2); Lymphocytes # (auto) 1.6 10 ^3/uL (0.4-5.4); Mean Corpuscular Hemoglobin 29.6 pg (28.0-32.0); Mean Corpuscular Hgb Conc. 33.9 g/dL (32.0-36.0); Mean Corpuscular Volume 87.3 fL (80.0-100.0); Monocytes # (auto) 1.1 10 ^3/uL (0-1.3); Monocytes % (auto) 10.5 % (0.0-12.0); Neutrophils # (auto) 7.9 10 ^3/uL (1.6-8.6); Neutrophils % (auto) 72.9 % (37.0-80.0); Platelet Count (auto) 413 10^3/uL (140-450); Red Blood Cells 5.17 10^6/uL (4.0-5.20); Red Cell Distribution Width 16.6 % (11.8-14.3); White Blood Cell 10.8 10^3/uL (4.4-10.8)
[2025-01-15 14:14] LABS: Anion Gap 12 (5-15); Chloride 100 mmol/L (98-107); Potassium 3.7 mmol/L (3.5-5.1)
[2025-01-15 14:16] LABS: Calcium 10.5 mg/dL (8.7-10.4); Carbon Dioxide 33 mmol/L (20-31); Sodium 145 mmol/L (136-145)
[2025-01-15 14:20] LABS: BUN/Creatinine Ratio 20.6 (10.0-20.0); Blood Urea Nitrogen 21 mg/dL (9-23); Glucose 118 mg/dL (74-106)
[2025-01-15] MEDS ORDERED: LIDO5DIS21 TOP (14:33)
--- NOTE | 2025-01-15 14:33 | ED.PDOC ---
Back pain HPI HPI Comments 64 year old F with hx of DDD, HTN, DM, CHF, and hx of chronic back pain presents for flare up located to the bilateral lumbosacral region. No trauma no injury Patient reports the pain is constant and worsens with lateral movements. Unable to get adequate relief with [id number] Tylenol and Motrin. Denies history of chronic steroid use or history of osteoporosis Denies any history of cancer Denies fevers chills night sweats nausea vomiting unintentional weight loss Denies IV drug use history of HIV/TB Denies abdominal "tearing" pain Denies syncope Denies urinary incontinence or urinary changes Denies numbness tingling of the groin or inner thigh Denies previous back procedure or surgery Chief Complaint: Back Pain Time Seen by MD: 12:02 Primary Care Provider: Dr. Alejandro Reviewed Notes: Nurses Notes, Medications, Allergies Allergies: Coded Allergies: Nitrofurantoin (Verified Allergy, Unknown, 12/04/17) Home Meds Active Scripts Furosemide (Lasix) 20 Mg Tb, 3 TAB PO BID for 30 Days, #180 TAB 1 Refill Prov:JORI LUX RESIDENT 11/19/24 Cephalexin (KEFLEX CAPSULE) 250 Mg Cp, 2 CAP PO BID for 5 Days, #28 CAP Prov:JORI LUX RESIDENT 11/19/24 Ergocalciferol (VITAMIN D 12297 UNIT) 50,000 [place], [address] UNIT PO Q7D for 30 Days, #5 CAP Prov:KATHY PARKER MD 07/22/24 Metformin Hydrochloride (Metformin Hcl) 1,000 Mg Tab, 1 TAB PO BID for 30 Days, #60 TAB 5 Refills Prov:HUE KINCAID 08/25/23 Carvedilol (COREG) 3.125 Mg Tab, 3.125 MG OR BID for 30 Days, #60 TAB Prov:HUE KINCAID 08/25/23 Potassium Chloride (Potassium Chloride ER) 20 Meq Tab, 20 MEQ PO DAILY for 30 Days, #30 TAB Prov:HUE KINCAID 08/25/23 Atorvastatin Calcium (ATORVASTATIN CALCIUM) 20 Mg Tab, 40 MG PO HS for 30 Days, #60 TAB Prov:HUE KINCAID 08/25/23 Aspirin (Aspirin Low Dose) 81 Mg Tab, 81 MG PO DAILY for 30 Days, #30 TAB Prov:HUE KINCAID RESIDENT 08/25/23 Reported Medications Lidocaine (Lidocaine) 5 % Pad, 2 PATCH TOP Q12HR 11/19/24 Losartan Potassium (Losartan Potassium) 25 Mg Tab, 1 TAB PO DAILY for pain 11/19/24 Gabapentin (Gabapentin) 300 Mg Cap, 1 TAB PO TID 08/24/23 Pantoprazole Sodium Sesquihydr (Pantoprazole Sodium) 40 Mg Tab, 1 TAB PO DAILY 08/02/21 Sucralfate (Carafate) 1 Gm/10 Ml Allie, 1 GM PO QIDACHS 08/02/21 Benazepril Hcl (Benazepril Hcl) 10 Mg Tab, 1 TAB PO DAILY 12/04/17 Information Source: Patient Mode of Arrival: Wheelchair Past Medical History PAST MEDICAL HISTORY: CHF, DM, Gallstones, High Lipids, HTN Surgical History: Cholecystectomy EL TEACHER History: No Pertinent EL TEACHER History Family History Family History: Reviewed,noncontributory to illness Social History Smoker: Non-Smoker Alcohol: Denies ETOH Use Drugs: Denies Drug Use Lives In: Home All Other Systems: Reviewed and Negative (PER HPI) Physical Exam General Appearance: No Apparent Distress, Normal HEENT: Normal ENT Inspection, Pharynx Normal, TMs Normal Neck: Full Range of Motion, Non-Tender, Normal, Normal Inspection Respiratory: Chest Non-Tender, Lungs Clear, No Accessory Muscle Use, No Respiratory Distress, Normal Breath Sounds Cardiovascular: No Edema, No JVD, No Murmur, No Gallop, Normal Peripheral Pulses, Regular Rate/Rhythm Breast Exam: Deferred Gastrointestinal: No Organomegaly, Non Tender, No Pulsatile Mass, Normal Bowel Sounds, Soft Genitalia: Deferred Pelvic: Deferred Rectal: Deferred Extremities: No calf tenderness, Normal capillary refill, Normal inspection, Normal range of motion, Non-tender, No pedal edema Musculoskeletal : Apperance: Normal Neurologic: Alert, bicycle rental clerk II-XII nml as Tested, No Motor Deficits, Normal Affect, Normal Mood, No Sensory Deficits Cerebellar Function: Normal Reflexes: Normal Skin: Dry, Normal Color, Warm Lymphatic: No Adenopathy Was a procedure done? Was a procedure done?: No Images 1 - No gross abnormality on inspection. No midline tenderness. No step-offs on palpation. Bilateral paralumbar TTP. Pain with forward flexion-extension and lateral movements. Distal sensation intact Back Pain Differential Dx Differential Diagnosis: Musculoskeletal Pain X-Ray, Labs, Meds, VS Vital Signs Date Time Temp Pulse Resp B/P (MAP) Pulse Ox O2 Delivery O2 Flow Rate FiO2 01/15/25 13:57 74 18 123/83 01/15/25 13:45 98.5 88 17 128/71 (90) 98 98.5 01/15/25 13:45 88 01/15/25 13:09 75 16 01/15/25 13:09 98.8 75 16 105/67 (80) 97 98.8 01/15/25 13:04 98.8 72 16 115/64 (81) 97 98.8 01/15/25 13:02 98.2 83 17 145/80 (101) 96 98.2 01/15/25 13:02 83 16 97 Room Air 01/15/25 11:24 97.8 79 18 118/58 (78) 98 97.8 01/15/25 10:41 98.2 83 22 145/80 (101) 96 98.2 Lab Test 01/15/25 13:48 01/15/25 12:40 Range/Units White Blood Count 10.8 4.4-10.8 10^3/uL Red Blood Count 5.17 4.0-5.20 10^6/uL Hemoglobin 15.3 12.2-16.2 g/dL Hematocrit 45.1 36.0-46.0 % Mean Corpuscular Volume 87.3 80.0-100.0 fL Mean Corpuscular Hemoglobin 29.6 28.0-32.0 pg Mean Corpuscular Hemoglobin Concent 33.9 32.0-36.0 g/dL Red Cell Distribution Width 16.6 H 11.8-14.3 % Platelet Count 413 140-450 10^3/uL Mean Platelet Volume 7.6 6.9-10.8 fL Neutrophils (%) (Auto) 72.9 37.0-80.0 % Lymphocytes (%) (Auto) 15.0 10.0-50.0 % Monocytes (%) (Auto) 10.5 0.0-12.0 % Eosinophils (%) (Auto) 0.7 0.0-7.0 % Basophils (%) (Auto) 0.9 0.0-2.0 % Neutrophils # (Auto) 7.9 1.6-8.6 10 ^3/uL Lymphocytes # (Auto) 1.6 0.4-5.4 10 ^3/uL Monocytes # (Auto) 1.1 0-1.3 10 ^3/uL Eosinophils # (Auto) 0.1 0-0.8 10 ^3/uL Basophils # (Auto) 0.1 0-0.2 10 ^3/uL Nucleated Red Blood Cells 0.0 % Sodium Level 145 136-145 mmol/L Potassium Level 3.7 3.5-5.1 mmol/L Chloride Level 100 98-107 mmol/L Carbon Dioxide Level 33 H 20-31 mmol/L Anion Gap 12 5-15 Blood Urea Nitrogen 21 9-23 mg/dL Creatinine 1.02 0.550-1.02 mg/dL Glomerular Filtration Rate Calc 62 >90 mL/min BUN/Creatinine Ratio 20.6 H 10.0-20.0 Serum Glucose 118 H 74-106 mg/dL Calcium Level 10.5 H 8.7-10.4 mg/dL Urine Color Yellow Yellow Urine Clarity Clear Clear Urine pH 6.5 5.0-9.0 Urine Specific [place] 1.016 1.001-1.035 Urine Protein Negative Negative Urine Ketones Negative Negative Urine Blood Negative Negative /uL Urine Nitrite Negative Negative Urine Bilirubin Negative Negative Urine Urobilinogen Normal Negative mg/dL Urine Leukocyte Esterase Negative Negative /uL Urine RBC <1 0 - 4 /hpf Urine Microscopic WBC 1 0-5 /HPF Urine Squamous Epithelial Cells Few <5 /hpf Urine Bacteria None seen None Seen /hpf Urine Glucose 1+ H Normal mg/dL Current Medications Medications (Trade) Dose Ordered Sig/Jamie Route Start Time Stop Time Status Last Admin Morphine Sulfate 4 mg ONCE ONCE IM 01/15/25 13:45 01/15/25 13:47 DC 01/15/25 13:57 X-Ray, Labs, Meds, VS Comment I considered cauda equina, spinal cord compression, vertebral malignancy/mets, acute spinal fracture, vertebral osteomyelitis, epidural abscess, infected or obstructed kidney stone, however this is less likely as the patient does not present with lower back pain red flags symptoms such as bowel or bladder dysfunction, saddle anesthesia, paresthesia, and without any history of malignancy or recent back trauma or spinal interventions. Therefore imaging studies were not indicated on today's visit. Presentation most consistent with nonemergent musculoskeletal etiology versus nonemergent disc herniation. ED workup: Defer imaging and lab work for outpatient follow up at this time Disposition: Discharge. Strict return precautions discussed with the patient with full understanding. Supportive care advised (rest, ice, heat, NSAIDs, stretching exercises) Massage muscles with cold pack or ice for 20 minutes 4 times per day. Usually most useful if there is swelling during the first 48 hours Heating pad on the most painful area for 20 minutes to relieve muscle spasm Sleep and the most comfortable sleeping position (usually on the side with knees bent) Light stretching, no strenuous activity, avoid frequent bending, avoid carrying heavy objects Discussed possible benefits of yoga and acupuncture Return precautions discussed including Inability to walk/bear weight Paresthesia/weakness/leg pain Fecal/urinary incontinence Any worsening symptoms Additional MDM Review of External, Non-ED records: External records reviewed. Discussion with independent historian (EMS, family) history obtained from the patient at bedside Chronic conditions affecting care: none Social determinants of health affecting care: none Consideration of admission (observation or admission): I considered escalation of care to admission for this patient, however given the reassuring workup, the patient is safe for outpatient management. Time of 1ST Reevaluation: 14:31 Reevaluation 1ST: Improved Patient Education/Counseling: Diagnosis, Treatment Family Education/Counseling: Diagnosis, Treatment Departure 1 Departure Time of Disposition: 14:32 Impression: Primary Impression: Back pain Qualified Codes: M54.50 - Low back pain, unspecified Disposition: HOME / SELF CARE / HOMELESS Condition: Stable e-Prescriptions Lidocaine (LIDODERM 5% TOPICAL PATCH) 1 Patch Ph 1 PATCH TOP DAILY for 30 Days, #30 PATCH 0 Refills Prov: DARLEEN LYNN NP 01/15/25 Discharged With: Relative Critical Care Note Critical Care Time?: No Stability Stability form required: No Heart Score Heart Score: Heart Score Response (Comments) Value History N/A 0 EKG N/A 0 Age N/A 0 Risk Factors N/A 0 Troponin N/A 0 Total 0 DARLEEN LYNN NP January 15, 2025 14:33
[2025-01-15] MEDS ORDERED: HYDR-4902 PO (14:38)
[2025-01-15 15:00] VITALS: BP 106/62; PULSE 73; RESP 18; TEMP 98.7; O2SAT 99
== END 2025-01-15 15:03 | disposition home or self-care (01) ==
LOC: ER 10:31
DX: G89.29 Other chronic pain (principal); M54.50 Low back pain, unspecified; I11.0 Hypertensive heart disease with heart failure; I50.9 Heart failure, unspecified; E11.9 Type 2 diabetes mellitus without complications; E78.5 Hyperlipidemia, unspecified; Z90.49 Acquired absence of other specified parts of digestive tract; Z79.82 Long term (current) use of aspirin; Z79.84 Long term (current) use of oral hypoglycemic drugs; Z79.899 Other long term (current) drug therapy; Z88.1 Allergy status to other antibiotic agents
CPT/HCPCS: 36415; 80048; 81001; 85025; 96372; 99283; J2270

== ENCOUNTER → 2025-03-27 | Outpatient (CLI) | payer OTHER, MEDICAID ==
[~2025-03-27] MED LIST changes: +HYDR-4902 PO; +LIDO5DIS21 TOP
[2025-03-27 09:30] LABS: Alanine Aminotransferase 18 U/L (7-40); Alkaline Phosphatase 73 U/L (46-116); Anion Gap 9 (5-15); BUN/Creatinine Ratio 30.2 (10.0-20.0); Blood Urea Nitrogen 26 mg/dL (9-23); Calcium 10.4 mg/dL (8.7-10.4); Carbon Dioxide 32 mmol/L (20-31); Chloride 98 mmol/L (98-107); Glucose 89 mg/dL (74-106); Potassium 4.1 mmol/L (3.5-5.1); Sodium 139 mmol/L (136-145); Total Protein 7.6 g/dL (5.7-8.2)
[2025-03-27 09:31] LABS: Albumin 4.7 g/dL (3.2-4.8); Bilirubin, Total 0.4 mg/dL (0.2-1.0)
== END | disposition home or self-care (01) ==
LOC: LAB 07:16
PROVIDERS: ATTEND Nurse Practitioner
DX: I11.0 Hypertensive heart disease with heart failure (principal); I50.9 Heart failure, unspecified; E11.9 Type 2 diabetes mellitus without complications; Z12.11 Encounter for screening for malignant neoplasm of colon
CPT/HCPCS: 36415; 80053; 82270; 83036

== ENCOUNTER 2025-06-25 07:24 | Outpatient (CLI) | payer OTHER, MEDICAID ==
[2025-06-25 07:56] LABS: Hematocrit 37.6 % (36.0-46.0); Hemoglobin 12.6 g/dL (12.2-16.2); Mean Corpuscular Hemoglobin 29.0 pg (28.0-32.0); Mean Corpuscular Volume 86.4 fL (80.0-100.0); Nucleated Red Blood Cells % 0.0 %
[2025-06-25 08:30] LABS: Alanine Aminotransferase 19 U/L (7-40); Alkaline Phosphatase 83 U/L (46-116); Anion Gap 9 (5-15); BUN/Creatinine Ratio 18.6 (10.0-20.0); Blood Urea Nitrogen 16 mg/dL (9-23); Calcium 9.3 mg/dL (8.7-10.4); Chloride 100 mmol/L (98-107); Glucose 81 mg/dL (74-106); Potassium 3.8 mmol/L (3.5-5.1); Sodium 141 mmol/L (136-145); Triglycerides 136 mg/dL (< 150)
[2025-06-25 08:31] LABS: Albumin 4.6 g/dL (3.2-4.8); Bilirubin, Total 0.4 mg/dL (0.2-1.0); Cholesterol 133 mg/dL (< 200); HDL Cholesterol 55 mg/dL (40-59)
[2025-06-25 08:34] LABS: Carbon Dioxide 32 mmol/L (20-31); Total Protein 8.3 g/dL (5.7-8.2)
== END 2025-06-25 17:00 | disposition home or self-care (01) ==
LOC: LAB 07:24
PROVIDERS: ATTEND Licensed Practical Nurse
DX: I11.0 Hypertensive heart disease with heart failure (principal); I50.22 Chronic systolic (congestive) heart failure; E11.69 Type 2 diabetes mellitus with other specified complication; E78.5 Hyperlipidemia, unspecified; E55.9 Vitamin D deficiency, unspecified
CPT/HCPCS: 36415; 80053; 80061; 82306; 83036; 85025

== ENCOUNTER 2025-07-22 13:11 | Outpatient (CLI) | payer OTHER, MEDICAID ==
[2025-07-22 13:25] LABS: Urine Protein, UAD 1+ (Negative)
== END 2025-07-22 17:00 | disposition home or self-care (01) ==
LOC: LAB 13:11
PROVIDERS: ATTEND Licensed Practical Nurse
DX: N39.0 Urinary tract infection, site not specified (principal)
CPT/HCPCS: 81003; 87086